=== PATIENT | female | born 1975 | race Caucasian/White ===

== ENCOUNTER 2016-03-17 14:16 | Outpatient (CLI) | payer BC | END 2016-03-17 14:17 | disposition home or self-care (01) | DX: R10.83 Colic (principal) ==

== ENCOUNTER 2016-06-25 06:13 | Day surgery (SDC) | payer BC ==
[2016-06-25] MEDS ORDERED: CELECOXIB 100 MG CAPSULE PO ONE (06:34)
[2016-06-25] MEDS ORDERED: LACTATED RINGERS 1,000 ML IV ONE ×2 (06:44→09:54)
[2016-06-25] MEDS ORDERED: ONDANSETRON 4 MG/2 ML VIAL ONE (07:04)
[2016-06-25] MEDS ORDERED: SCOPOLAMINE PATCH TOP ONE (07:10)
[2016-06-25] MEDS ORDERED: DEXAMETHASONE 4 MG/ML VIAL IVP ONE (08:00)
[2016-06-25] MEDS ORDERED: fentaNYL 100 MCG/2 ML VIAL IVP ONE (08:00)
[2016-06-25] MEDS ORDERED: KETOROLAC 30 MG/ML VIAL IVP ONE (08:00)
[2016-06-25] MEDS ORDERED: GLYCOPYRROLATE 1 MG/5 ML VIAL IVP ONE (08:00)
[2016-06-25] MEDS ORDERED: MIDAZOLAM 2 MG/2 ML VIAL IVP ONE (08:00)
[2016-06-25] MEDS ORDERED: ONDANSETRON 4 MG/2 ML VIAL IVP ONE (08:00)
[2016-06-25] MEDS ORDERED: SUCCINYLCHOLINE 200 MG/10 ML VIAL IVP ONE (08:00)
[2016-06-25] MEDS ORDERED: PROPOFOL 200 MG/20 ML VIAL IVP ONE (08:00)
[2016-06-25] MEDS ORDERED: LIDOCAINE-MPF 2% 5 ML VIAL IM ONE (08:00)
[2016-06-25] MEDS ORDERED: ROCURONIUM 50 MG/5 ML VIAL IVP ONE (08:00)
[2016-06-25] MEDS ORDERED: NEOSTIGMINE 1 MG/1 ML 10 ML MDV IVP ONE (08:00)
[2016-06-25] MEDS ORDERED: LIDOCAINE 1%-EPI 1:100000 30 ML MDV SUBQ ONE ×2 (08:40)
[2016-06-25] MEDS: HYDROmorphone 1 MG/ML SYRINGE ONE ×3 (09:25→09:49)
[2016-06-25] MEDS ORDERED: HYDROcod/ACETAM 5/325 MG TABLET ONE (10:11)
== END 2016-06-25 06:14 | disposition home or self-care (01) ==
PROC: 0UT74ZZ Resection of Bilateral Fallopian Tubes, Percutaneous Endoscopic Approach (ICD-10-PCS; 2016-06-25)
PROC: 0U514ZZ Destruction of Left Ovary, Percutaneous Endoscopic Approach (ICD-10-PCS; 2016-06-25)
PROC: 0D5W4ZZ Destruction of Peritoneum, Percutaneous Endoscopic Approach (ICD-10-PCS; 2016-06-25)
PROC: 0UT04ZZ Resection of Right Ovary, Percutaneous Endoscopic Approach (ICD-10-PCS; principal; 2016-06-25 07:30)
DX: N80.3 Endometriosis of pelvic peritoneum (principal); D25.1 Intramural leiomyoma of uterus; D25.2 Subserosal leiomyoma of uterus; N83.8 Other noninflammatory disorders of ovary, fallopian tube and broad ligament; Z30.2 Encounter for sterilization; Z88.2 Allergy status to sulfonamides; F41.9 Anxiety disorder, unspecified; G43.909 Migraine, unspecified, not intractable, without status migrainosus; K21.9 Gastro-esophageal reflux disease without esophagitis; E66.9 Obesity, unspecified; Z68.35 Body mass index [BMI] 35.0-35.9, adult; I10 Essential (primary) hypertension
CPT/HCPCS: 58661; 58662; 81025; A9270; J1170; J3490; J7120

== ENCOUNTER 2016-06-29 15:34 | Inpatient (IN) | payer BC ==
[2016-06-29] MEDS ORDERED: HYDROmorphone 1 MG/ML SYRINGE IVP STA ×2 (16:12→17:14)
[2016-06-29] MEDS ORDERED: HYDROmorphone 1 MG/ML SYRINGE ONE ×2 (16:12→17:17)
[2016-06-29] MEDS ORDERED: ONDANSETRON 4 MG/2 ML VIAL ONE ×2 (16:12→17:02)
[2016-06-29] MEDS ORDERED: ONDANSETRON 4 MG/2 ML VIAL IVP STA ×2 (16:12→16:58)
[2016-06-29] MEDS ORDERED: SODIUM CHLORIDE 0.9% 1,000 ML IV ONE ×3 (16:12→17:02)
[2016-06-29] MEDS ORDERED: IOPAMIDOL-300 100 ML VIAL IVP ONE (16:54)
[2016-06-29] MEDS ORDERED: ACETAMINOPHEN 1,000 MG/100 ML 100 ML IV STA (17:15)
[2016-06-29] MEDS ORDERED: ACETAMINOPHEN 1,000 MG/100 ML 100 ML IV ONE (17:17)
[2016-06-29] MEDS ORDERED: METOCLOPRAMIDE 10 MG/2 ML VIAL IVP STA (17:28)
[2016-06-29] MEDS ORDERED: METOCLOPRAMIDE 10 MG/2 ML VIAL IVP ONE (17:32)
[2016-06-29] MEDS ORDERED: VANCOMYCIN INJ 1 GM in SODIUM CHLORIDE 0.9% 250 ML IV STA (18:19)
[2016-06-29] MEDS ORDERED: VANCOMYCIN 1 GM VIAL ONE (18:20)
[2016-06-29] MEDS ORDERED: IBUPROFEN 600 MG TABLET PO PRN (18:47)
[2016-06-29] MEDS ORDERED: HYDROcod/ACETAM 5/325 MG TABLET PO PRN (18:47)
[2016-06-29] MEDS ORDERED: ONDANSETRON 4 MG/2 ML VIAL IVP PRN (18:47)
[2016-06-29] MEDS: HYDROmorphone 1 MG/ML SYRINGE IVP PRN ×2 (19:33→22:01)
[2016-06-29] MEDS: SODIUM CHLORIDE FLUSH 0.9% 10 ML SYRINGE IVP PRN (19:35)
[2016-06-29] MEDS ORDERED: VANCOMYCIN PER PHARMACY 1 GM in SODIUM CHLORIDE 0.9% 250 ML IV SCH (20:00)
[2016-06-29] MEDS ORDERED: ONDANSETRON 4 MG/2 ML VIAL IVP SCH (20:47)
[2016-06-29] MEDS: SODIUM CHLORIDE FLUSH 0.9% 10 ML SYRINGE IVP SCH ×2 (22:02→22:33)
[2016-06-29] MEDS: LACTATED RINGERS 1,000 ML IV SCH (22:03)
[2016-06-29] MEDS: metroNIDAZOLE 500 MG/100 ML 100 ML IV SCH (22:33)
[2016-06-29] MEDS ORDERED: LIDOCAINE JELLY 2% 5 ML TUBE TOP ONE (22:35)
[2016-06-30] MEDS: HYDROmorphone 1 MG/ML SYRINGE IVP PRN ×5 (00:16→21:30)
[2016-06-30] MEDS: ZOLPIDEM 5 MG TABLET PO PRN (00:17)
[2016-06-30] MEDS ORDERED: PROCHLORPERAZINE 10 MG/2 ML VIAL IVP PRN (01:16)
[2016-06-30] MEDS ORDERED: LIDOCAINE JELLY 2% 5 ML TUBE TOP ONE (01:51)
[2016-06-30] MEDS: metroNIDAZOLE 500 MG/100 ML 100 ML IV SCH ×4 (02:27→21:23)
[2016-06-30] MEDS: LACTATED RINGERS 1,000 ML IV SCH ×4 (02:48→21:42)
[2016-06-30] MEDS: SODIUM CHLORIDE FLUSH 0.9% 10 ML SYRINGE IVP PRN (02:51)
[2016-06-30] MEDS ORDERED: VANCOMYCIN INJ 1.25 GM in SODIUM CHLORIDE 0.9% 500 ML IV SCH (04:00)
[2016-06-30] MEDS: SODIUM CHLORIDE FLUSH 0.9% 10 ML SYRINGE IVP SCH ×3 (06:34→21:24)
[2016-06-30] MEDS: POLYETHYLENE GLYCOL 3350 17 GM PACKET PO SCH (09:55)
[2016-06-30] MEDS: oxyCODONE 5 MG TABLET PO SCH ×3 (13:41→21:23)
[2016-06-30] MEDS: ACETAMINOPHEN 500 MG TABLET PO SCH ×2 (13:41→21:24)
[2016-06-30] MEDS ORDERED: VANCOMYCIN INJ 1 GM, VANCOMYCIN INJ 500 MG in SODIUM CHLORIDE 0.9% 500 ML IV SCH (16:00)
[2016-06-30] MEDS ORDERED: VANCOMYCIN 500 MG VIAL ONE (16:42)
[2016-06-30] MEDS ORDERED: VANCOMYCIN 1 GM VIAL ONE (16:42)
[2016-06-30] MEDS ORDERED: SODIUM CHLORIDE 0.9% 500 ML IV ONE (16:42)
[2016-06-30] MEDS ORDERED: PHENOL THROAT SPRAY 177 ML MM ONE (17:57)
[2016-06-30] MEDS: CELECOXIB 100 MG CAPSULE PO SCH (21:24)
[2016-07-01] MEDS: oxyCODONE 5 MG TABLET PO SCH ×3 (00:48→08:36)
[2016-07-01] MEDS: HYDROmorphone 1 MG/ML SYRINGE IVP PRN ×3 (01:15→10:00)
[2016-07-01] MEDS: metroNIDAZOLE 500 MG/100 ML 100 ML IV SCH ×3 (01:38→13:20)
[2016-07-01] MEDS: ZOLPIDEM 5 MG TABLET PO PRN (02:03)
[2016-07-01] MEDS ORDERED: VANCOMYCIN INJ 1 GM, VANCOMYCIN INJ 500 MG in SODIUM CHLORIDE 0.9% 500 ML IV SCH (04:00)
[2016-07-01] MEDS: LACTATED RINGERS 1,000 ML IV SCH ×4 (05:23→21:39)
[2016-07-01] MEDS: ACETAMINOPHEN 500 MG TABLET PO SCH ×3 (05:52→21:39)
[2016-07-01] MEDS: SODIUM CHLORIDE FLUSH 0.9% 10 ML SYRINGE IVP SCH ×3 (06:09→22:11)
[2016-07-01] MEDS: metFORMIN 500 MG TABLET PO SCH ×4 (06:21→21:40)
[2016-07-01] MEDS: TOPIRAMATE 25 MG TABLET PO SCH ×2 (08:35→21:40)
[2016-07-01] MEDS: ESCITALOPRAM 10 MG TABLET PO SCH (08:35)
[2016-07-01] MEDS: CELECOXIB 100 MG CAPSULE PO SCH ×2 (08:36→21:40)
[2016-07-01] MEDS: POLYETHYLENE GLYCOL 3350 17 GM PACKET PO SCH (08:36)
[2016-07-01] MEDS ORDERED: HYDROmorphone 2 MG TABLET PO PRN (11:51)
[2016-07-01] MEDS: METOCLOPRAMIDE 10 MG TABLET PO SCH ×3 (12:29→23:56)
[2016-07-01] MEDS ORDERED: VANCOMYCIN INJ 2 GM in SODIUM CHLORIDE 0.9% 500 ML IV SCH (16:00)
[2016-07-01] MEDS: HYDROmorphone 2 MG TABLET PO PRN ×2 (16:57→21:41)
[2016-07-01] MEDS: SACCHAROMYCES BOULARDII 250 MG CAPSULE PO SCH (16:58)
[2016-07-01] MEDS ORDERED: GENTAMICIN 240 MG in SODIUM CHLORIDE 0.9% 100ML 100 ML IV SCH (19:00)
[2016-07-01] MEDS: CIPROFLOXACIN 400 MG/200 ML 200 ML IV SCH (19:15)
[2016-07-02] MEDS: ACETAMINOPHEN 500 MG TABLET PO SCH ×3 (04:38→22:04)
[2016-07-02] MEDS: HYDROmorphone 2 MG TABLET PO PRN ×5 (04:38→22:06)
[2016-07-02] MEDS: LACTATED RINGERS 1,000 ML IV SCH (04:40)
[2016-07-02] MEDS: SODIUM CHLORIDE FLUSH 0.9% 10 ML SYRINGE IVP SCH ×3 (05:44→19:28)
[2016-07-02] MEDS: CIPROFLOXACIN 400 MG/200 ML 200 ML IV SCH ×2 (06:56→19:27)
[2016-07-02] MEDS: METOCLOPRAMIDE 10 MG TABLET PO SCH ×4 (07:00→23:39)
[2016-07-02] MEDS: SACCHAROMYCES BOULARDII 250 MG CAPSULE PO SCH ×2 (07:50→17:53)
[2016-07-02] MEDS: metFORMIN 500 MG TABLET PO SCH ×3 (07:50→22:05)
[2016-07-02] MEDS: TOPIRAMATE 25 MG TABLET PO SCH ×2 (07:50→22:05)
[2016-07-02] MEDS: CELECOXIB 100 MG CAPSULE PO SCH ×2 (07:50→22:05)
[2016-07-02] MEDS: ESCITALOPRAM 10 MG TABLET PO SCH (07:50)
[2016-07-02] MEDS: POLYETHYLENE GLYCOL 3350 17 GM PACKET PO SCH (07:50)
[2016-07-02] MEDS: POTASSIUM CHLOR 10 MEQ/100 ML 100 ML IV SCH ×2 (12:04→13:26)
[2016-07-02] MEDS: SODIUM CHLORIDE FLUSH 0.9% 10 ML SYRINGE IVP PRN (19:28)
[2016-07-02] MEDS: ZOLPIDEM 5 MG TABLET PO PRN (23:39)
[2016-07-03] MEDS: SODIUM CHLORIDE FLUSH 0.9% 10 ML SYRINGE IVP SCH (05:59)
[2016-07-03] MEDS: ACETAMINOPHEN 500 MG TABLET PO SCH (05:59)
[2016-07-03] MEDS: metFORMIN 500 MG TABLET PO SCH (05:59)
[2016-07-03] MEDS: CIPROFLOXACIN 400 MG/200 ML 200 ML IV SCH (06:00)
[2016-07-03] MEDS: METOCLOPRAMIDE 10 MG TABLET PO SCH (06:00)
[2016-07-03] MEDS: POLYETHYLENE GLYCOL 3350 17 GM PACKET PO SCH (08:09)
[2016-07-03] MEDS: ESCITALOPRAM 10 MG TABLET PO SCH (08:09)
[2016-07-03] MEDS: CELECOXIB 100 MG CAPSULE PO SCH (08:09)
[2016-07-03] MEDS: SACCHAROMYCES BOULARDII 250 MG CAPSULE PO SCH (08:09)
[2016-07-03] MEDS: TOPIRAMATE 25 MG TABLET PO SCH (08:09)
[2016-07-03] MEDS: HYDROmorphone 2 MG TABLET PO PRN (08:14)
== END 2016-07-03 08:55 | disposition home or self-care (01) | DRG 863 ==
DX: T81.4XXA Infection following a procedure, initial encounter (principal); L03.311 Cellulitis of abdominal wall; K56.7 Ileus, unspecified; B95.61 Methicillin susceptible Staphylococcus aureus infection as the cause of diseases classified elsewhere; Y83.8 Other surgical procedures as the cause of abnormal reaction of the patient, or of later complication, without mention of misadventure at the time of the procedure; R33.9 Retention of urine, unspecified; F41.8 Other specified anxiety disorders; Z16.24 Resistance to multiple antibiotics; Z87.891 Personal history of nicotine dependence; Z90.721 Acquired absence of ovaries, unilateral; Z90.79 Acquired absence of other genital organ(s); Z87.898 Personal history of other specified conditions

== ENCOUNTER 2016-12-17 14:29 | Outpatient (CLI) | payer BC | END 2016-12-17 14:30 | disposition critical access hospital (66) | LOC: EMS 14:29 | PROVIDERS: ATTEND Surgery | DX: M54.9 Dorsalgia, unspecified (principal); R10.32 Left lower quadrant pain; M25.552 Pain in left hip; M54.2 Cervicalgia; V80.010A Animal-rider injured by fall from or being thrown from horse in noncollision accident, initial encounter; Y93.52 Activity, horseback riding; Y92.410 Unspecified street and highway as the place of occurrence of the external cause | CPT/HCPCS: A0425; A0427 ==

== ENCOUNTER 2016-12-17 14:43 | Observation (INO) | payer BC ==
[2016-12-17] MEDS ORDERED: MORPHINE 2 MG/ML SYRINGE IVP STA (14:56)
--- NOTE | 2016-12-17 14:57 | ED Physician Documentation ---
PD HPI MAJOR TRAUMA - Stated complaint Stated Complaint: FALL FROM HORSE - Chief complaint Chief Complaint: Trauma Ext - History obtained from History obtained from: Patient, Family, EMS - History of Present Illness Mechanism of injury: Fell Where injury occurred: Park Timing - onset: Today Injury(ies) location: Back, Left Lower Extremity, Other (pelvis) Quality of pain: Pain, Throbbing Associated symptoms: AMS, Amnesia. No: LOC, Seizures, Ear drainage, Nasal drainage, Neck pain, Weakness, Paresthesias, Dyspnea, Nausea / vomiting, Hematemesis, Abdominal distension Symptoms improve with: Rest Worsens with: Movement, Palpation Contributing factors: No: Anticoagulated Similar symptoms before: Has not had sx before Recently seen: Not recently seen Review of Systems Constitutional: denies: Fever Nose: denies: Congestion Throat: denies: Sore throat Cardiac: denies: Chest pain / pressure, Palpitations Respiratory: denies: Dyspnea, Cough GI: denies: Abdominal Pain, Nausea, Vomiting, Constipation, Diarrhea : denies: Dysuria, Frequency Skin: denies: Rash Musculoskeletal: reports: Back pain, Extremity pain, Joint pain. 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: Endometrial ablation, Oophrectomy, Other - Present Medications Home Medications: Ambulatory Orders Medication Instructions Recorded Confirmed Escitalopram Oxalate [Lexapro] 20 mg PO DAILY 02/05/16 06/30/16 Metformin HCl 500 mg PO TID 02/05/16 06/30/16 Norethindrone-Ethinyl Estrad 1 each PO DAILY 02/05/16 06/30/16 [Nortrel 7-7-7-28 Tablet] Riboflavin 400 mg PO DAILY 02/05/16 06/30/16 Topiramate [Topamax] 25 mg PO DAILY 02/05/16 06/30/16 Famotidine 40 mg PO BID 06/30/16 06/30/16 Sumatriptan Succinate [Imitrex] 4 mg SQ Q24H PRN 06/30/16 06/30/16 Topiramate [Topamax] 50 mg PO QPM 06/30/16 06/30/16 Escitalopram [Lexapro] 20 mg PO DAILY #30 tablet 07/03/16 HYDROmorphone [Dilaudid] 4 mg PO Q4HR PRN #50 tablet 07/03/16 Metoclopramide [Reglan] 10 mg PO Q6H #30 tablet 07/03/16 Topiramate [Topamax] 25 mg PO BID #60 tablet 07/03/16 metFORMIN [Glucophage] 500 mg PO TID #60 tablet 07/03/16 - Allergies Allergies/Adverse Reactions: Allergies Allergy/AdvReac Type Severity Reaction Status Date / Time Sulfa (Sulfonamide Allergy Rash Verified 02/05/16 13:49 Antibiotics) - Social History Does the pt smoke?: No Smoking Status: Former smoker Does the pt drink ETOH?: No Does the pt have substance abuse?: No - Immunizations Immunizations are current?: Yes PD ED PE NORMAL - Vitals Vital signs reviewed: Yes (tachy and hypertensive ) - General General: Well developed/nourished, Other (40-year-old female on a backboard with hard collar in place and a tourniquet around her pelvis. Appears to be in pain) - HEENT HEENT: Atraumatic, PERRL, EOMI - Neck Neck: Supple, no meningeal sign, No bony TTP - Cardiac Cardiac: RRR, No murmur - Respiratory Respiratory: No respiratory distress, Clear bilaterally, Other (no chest wall or back pain ) - Abdomen Abdomen: Normal bowel sounds, Other (mild right lower quadrant tenderness) - Back Back: No CVA TTP, Other (There is some mild tenderness to the mid lumbar spine with distracting pain in the left hip/pelvis) - Derm Derm: Normal color, Warm and dry, No rash - Extremities Extremities: No deformity, No edema, Other (There is pain to palpation of the mid femur and this is radiating to the pelvis. There is pain to the pelvis on the left side with all movements of the patient.There is specific pain to the suprapubic area on the left and pain referred to this area with any movement of the LE. ) - Neuro Neuro: Alert and oriented X 3, No motor deficit, No sensory deficit, Normal speech - Psych Psych: Normal mood, Normal affect Results - Vitals Vitals: Vital Signs - 24 hr 12/17/16 12/17/16 12/17/16 14:45 15:42 16:17 Temperature Heart Rate 102 H 95 99 Respiratory 20 17 18 Rate Blood Pressure 143/95 H 122/105 H 128/74 O2 Saturation 99 98 100 12/17/16 17:43 Temperature 37.2 C Heart Rate 107 H Respiratory 16 Rate Blood Pressure 128/83 H O2 Saturation 99 Oxygen O2 Source Room air - Rads (name of study) CT abdomen pelvis with Radiology: Prelim report reviewed (Impression: 1. There are fractures of the left superior and inferior pubic rami and anterior left sacrum. 2. No acute solid organ injury.3. Incidental findings described above.), EMP read indepedently, See rad report Left femur Radiology: Prelim report reviewed (Impression: Normal femur radiography.), EMP read indepedently, See rad report PD MEDICAL DECISION MAKING - ED course Complexity details: reviewed old records, reviewed results, re-evaluated patient , considered differential, d/w patient, d/w family ED course: 40-year-old female with a fall off a horse and broke her pelvis. She has a superior and inferior ramus fracture and a anterior sacral fracture. She is having extreme pain and she has been on pain management for some time now. She has some relief of pain with use of intravenous morphine she does not have adequate pain relief with use of oral Vicodin for ambulation and I have asked the Orthopedic surgeon Dr. Garces to place the patient in the hospital in observation for pain control and disposition. Departure - Departure Disposition: ED Place in Observation Clinical Impression: Closed fracture of left inferior pubic ramus Qualifiers: Encounter type: initial encounter Qualified Code(s): S32.592A - Other specified fracture of left pubis, initial encounter for closed fracture Fracture of superior ramus of left pubis Qualifiers: Encounter type: initial encounter Fracture type: closed Qualified Code(s): S32.512A - Fracture of superior rim of left pubis, initial encounter for closed fracture Sacral fracture, closed Qualifiers: Encounter type: initial encounter Zone of sacrum fracture: zone I of sacrum Fracture alignment: nondisplaced Qualified Code(s): S32.110A - Nondisplaced Zone I fracture of sacrum, initial encounter for closed fracture Condition: Stable
[2016-12-17] MEDS ORDERED: MORPHINE 10 MG/ML VIAL ONE ×2 (15:08→18:46)
[2016-12-17] MEDS ORDERED: IOPAMIDOL-300 100 ML VIAL ONE (15:11)
[2016-12-17] MEDS ORDERED: MORPHINE 10 MG/ML VIAL IVP STA ×2 (15:37→18:32)
--- NOTE | 2016-12-17 16:00 | XRAY Preliminary Report ---
Exam: XR FEMUR 2V LT IMPRESSION: Normal femur radiography. [facility] SITE ID: [id number]
--- NOTE | 2016-12-17 16:03 | XRAY Report ---
EXAM: LEFT FEMUR RADIOGRAPHY EXAM DATE: 12/17/2016 03:25 PM. CLINICAL HISTORY: Fall from horse mid thigh pain/pelvic pain. COMPARISON: None. TECHNIQUE: 2 views. FINDINGS: Bones: Normal. No fracture or bone lesion. Joints: The visualized hip and knee joints are normal. No effusions. Soft Tissues: Normal. No soft tissue swelling. IMPRESSION: Normal femur radiography. [facility] Referring Provider Line: [phone] SITE ID: [id number]
--- NOTE | 2016-12-17 16:06 | XRAY Preliminary Report ---
Exam: XR HIP W/PELVIS 1V LT IMPRESSION: 1. Acute left superior and inferior pubic rami fractures, appear mildly displaced. See the separate C T abdomen and pelvis report. [facility] SITE ID: [id number]
--- NOTE | 2016-12-17 16:09 | XRAY Report ---
EXAM: LEFT HIP AND PELVIS RADIOGRAPHY EXAM DATE: 12/17/2016 03:25 PM. HISTORY: Fall from horse left hip/pelvis pain. COMPARISONS: None. TECHNIQUE: 1 view of the pelvis and 1 view of the hip. FINDINGS: Bones: Acute left superior and inferior pubic rami fractures, appear mildly displaced. Overlying meta l zipper limits visualization. Joints: No dislocation Soft Tissues: Normal. No soft tissue swelling. Metal zipper obscures visualization. IMPRESSION: 1. Acute left superior and inferior pubic rami fractures, appear mildly displaced. See the separate C T abdomen and pelvis report. [facility] Referring Provider Line: [phone] SITE ID: [id number]
--- NOTE | 2016-12-17 16:15 | CT Preliminary Report ---
Exam: CT ABDOMEN/PELVIS W/ IMPRESSION: 1. There are fractures of the left superior and inferior pubic rami and the anterior left sacrum. 2. No acute solid organ injury. 3. Incidental findings described above. [facility] SITE ID: [id number]
--- NOTE | 2016-12-17 16:17 | CT Report ---
EXAM: CT ABDOMEN AND PELVIS EXAM DATE: 12/17/2016 03:46 PM. CLINICAL HISTORY: Fall from horse pain in pelvis and RLQ. COMPARISONS: 02/05/2016. TECHNIQUE: Routine helical CT imaging was performed through the abdomen and pelvis. IV contrast: 100 mL Isovue-300. Enteric contrast: No. Reconstructions: Coronal and sagittal. In accordance with CT protocol optimization, one or more of the following dose reduction techniques w ere utilized for this exam: automated exposure control, adjustment of mA and/or KV based on patient s ize, or use of iterative reconstructive technique. FINDINGS: Lung Bases: Unremarkable. Liver: Diffusely decreased attenuation consistent with steatosis and focal fatty sparing adjacent to the gallbladder. No significant focal abnormality. Gallbladder/Bile Ducts: The gallbladder appears normal. The extrahepatic bile duct is prominent measu ring 8 mm in diameter. Spleen: Normal. Pancreas: Normal. Adrenal Glands: Normal. Kidneys: Normal. No masses or hydronephrosis. Peritoneal Cavity/Bowel: Normal. No free fluid, free air or adenopathy. No masses or acute inflammato ry process. The appendix is well visualized and normal. Pelvic Organs: There is an approximately 3.8 cm uterine mass consistent with a fibroid. Urinary bladd er appears within normal limits. Vasculature: No aneurysms or other significant abnormality. Bones: 1. There is a minimally displaced and mildly comminuted left superior pubic ramus fracture centered o n series 11 image 92. 2. There is a minimally displaced left inferior pubic ramus centered around image 101. 3. Mildly comminuted anterior left sacral fracture centered on image 42. Other: No large soft tissue hematoma. IMPRESSION: 1. There are fractures of the left superior and inferior pubic rami and the anterior left sacrum. 2. No acute solid organ injury. 3. Incidental findings described above. [facility] Referring Provider Line: [phone] SITE ID: [id number]
[2016-12-17] MEDS ORDERED: HYDROcod/ACETAM 7.5 MG/325 MG TABLET PO STA (16:32)
[2016-12-17] MEDS ORDERED: IOPAMIDOL-300 100 ML VIAL IVP ONE (16:32)
[2016-12-17] MEDS ORDERED: HYDROcod/ACETAM 5/325 MG TABLET ONE (16:43)
[2016-12-17] MEDS ORDERED: HYDROcod/ACETAM 7.5 MG/325 MG TABLET PO ONE (16:51)
[2016-12-17] MEDS ORDERED: KETOROLAC 60 MG/2 ML VIAL IVP STA (17:54)
[2016-12-17] MEDS ORDERED: ACETAMINOPHEN 1,000 MG/100 ML 100 ML IV STA (17:54)
[2016-12-17] MEDS ORDERED: ACETAMINOPHEN 1,000 MG/100 ML 100 ML IV ONE (18:03)
[2016-12-17] MEDS ORDERED: KETOROLAC 60 MG/2 ML VIAL ONE (18:03)
--- NOTE | 2016-12-17 18:03 | HISTORY & PHYSICAL EXAMINATION ---
Chief Complaint - Chief Complaint Chief Complaint: Fell off horse with injury to pelvis. 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: Endometrial ablation, Oophrectomy, Other Meds/Allgy - Home Medications Home Medications: Ambulatory Orders Medication Instructions Recorded Confirmed Escitalopram Oxalate [Lexapro] 20 mg PO DAILY 02/05/16 06/30/16 Metformin HCl 500 mg PO TID 02/05/16 06/30/16 Norethindrone-Ethinyl Estrad 1 each PO DAILY 02/05/16 06/30/16 [Nortrel 7-7-7-28 Tablet] Riboflavin 400 mg PO DAILY 02/05/16 06/30/16 Topiramate [Topamax] 25 mg PO DAILY 02/05/16 06/30/16 Famotidine 40 mg PO BID 06/30/16 06/30/16 Sumatriptan Succinate [Imitrex] 4 mg SQ Q24H PRN 06/30/16 06/30/16 Topiramate [Topamax] 50 mg PO QPM 06/30/16 06/30/16 Escitalopram [Lexapro] 20 mg PO DAILY #30 tablet 07/03/16 HYDROmorphone [Dilaudid] 4 mg PO Q4HR PRN #50 tablet 07/03/16 Metoclopramide [Reglan] 10 mg PO Q6H #30 tablet 07/03/16 Topiramate [Topamax] 25 mg PO BID #60 tablet 07/03/16 metFORMIN [Glucophage] 500 mg PO TID #60 tablet 07/03/16 - Allergies Allergies/Adverse Reactions: Allergies Allergy/AdvReac Type Severity Reaction Status Date / Time Sulfa (Sulfonamide Allergy Rash Verified 02/05/16 13:49 Antibiotics) Exam - Vital Signs Vital Signs: Vital Signs x48h Temp Pulse Resp BP Pulse Ox 12/17/16 17:43 37.2 C 107 H 16 128/83 H 99 12/17/16 16:17 99 18 128/74 100 12/17/16 15:42 95 17 122/105 H 98 12/17/16 14:45 102 H 20 143/95 H 99
--- NOTE | 2016-12-17 18:24 | HISTORY & PHYSICAL EXAMINATION ---
Chief Complaint - Chief Complaint Chief Complaint: 40 yo female fell off horse History of Present Illness - Admitted From Admitted From:: ED - History Obtained From Records Reviewed: none History obtained from: patient Exam Limitations: Patient unable to move from supine position - History of Present Illness HPI Comment/Other: fell off horse earlier ths afternoon. She was transported to ER with only complaint of pelvic area pain. She has prior Hx of meth and pill addiction. Clean for 2 years and attending Hs PCP active in her narcotic control. Denies numbness or weakness. History - Past Medical History Cardiovascular: reports: None Respiratory: reports: None Neuro: reports: None, Cerebral palsy Endocrine/Autoimmune: reports: None GI: reports: GERD, Hiatal hernia, Chronic constipation KNIFE CHANGER: reports: Endometriosis : reports: Other HEENT: reports: Chronic hearing loss Psych: reports: Depression, Anxiety Musculoskeletal: reports: None, Chronic back pain MRSA Hx?: No - Past Surgical History Ortho: reports: Carpal Tunnel surgery /KNIFE CHANGER: reports: Endometrial ablation, Oophrectomy, Other - Family & Social History Living arrangement: At home Living Situation: With family - Substance History Use: Uses substance without health or social issues: Amphetamine, Opioid Abuse: Recurrent use of substance despite neg consequences: Amphetamine, Opioid Dependence: Experiences withdrawal or developed tolerances: Opioid - POLST POLST Status: Full Code Meds/Allgy - Home Medications Home Medications: Ambulatory Orders Medication Instructions Recorded Confirmed Escitalopram Oxalate [Lexapro] 20 mg PO DAILY 02/05/16 06/30/16 Metformin HCl 500 mg PO TID 02/05/16 06/30/16 Norethindrone-Ethinyl Estrad 1 each PO DAILY 02/05/16 06/30/16 [Nortrel 7-7-7-28 Tablet] Riboflavin 400 mg PO DAILY 02/05/16 06/30/16 Topiramate [Topamax] 25 mg PO DAILY 02/05/16 06/30/16 Famotidine 40 mg PO BID 06/30/16 06/30/16 Sumatriptan Succinate [Imitrex] 4 mg SQ Q24H PRN 06/30/16 06/30/16 Topiramate [Topamax] 50 mg PO QPM 06/30/16 06/30/16 Escitalopram [Lexapro] 20 mg PO DAILY #30 tablet 04/27/17 HYDROmorphone [Dilaudid] 4 mg PO Q4HR PRN #50 tablet 07/03/16 Metoclopramide [Reglan] 10 mg PO Q6H #30 tablet 07/03/16 Topiramate [Topamax] 25 mg PO BID #60 tablet 07/03/16 metFORMIN [Glucophage] 500 mg PO TID #60 tablet 07/03/16 - Allergies Allergies/Adverse Reactions: Allergies Allergy/AdvReac Type Severity Reaction Status Date / Time Sulfa (Sulfonamide Allergy Rash Verified 02/05/16 13:49 Antibiotics) Exam - Vital Signs Vital Signs: Vital Signs x48h Temp Pulse Resp BP Pulse Ox 12/17/16 17:43 37.2 C 107 H 16 128/83 H 99 12/17/16 16:17 99 18 128/74 100 12/17/16 15:42 95 17 122/105 H 98 12/17/16 14:45 102 H 20 143/95 H 99
[2016-12-17] MEDS ORDERED: SODIUM CHLORIDE FLUSH 0.9% 10 ML SYRINGE IVP ONE (18:46)
--- NOTE | 2016-12-17 18:47 | HISTORY & PHYSICAL EXAMINATION ---
Chief Complaint - Chief Complaint Chief Complaint: 40 yo female fell off horse History of Present Illness - Admitted From Admitted From:: ER - History Obtained From Records Reviewed: none History obtained from: patient Exam Limitations: patient cannot move well - History of Present Illness HPI Comment/Other: No other injury. 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: reports: Endometrial ablation, Oophrectomy, Other - Family & Social History Living arrangement: At home Living Situation: With family - Substance History Use: Uses substance without health or social issues: Amphetamine, Opioid Abuse: Recurrent use of substance despite neg consequences: Amphetamine, Opioid Dependence: Experiences withdrawal or developed tolerances: Opioid - POLST POLST Status: Full Code Meds/Allgy - Home Medications Home Medications: Ambulatory Orders Medication Instructions Recorded Confirmed Escitalopram Oxalate [Lexapro] 20 mg PO DAILY 02/05/16 06/30/16 Metformin HCl 500 mg PO TID 02/05/16 06/30/16 Norethindrone-Ethinyl Estrad 1 each PO DAILY 02/05/16 06/30/16 [Nortrel 7-7-7-28 Tablet] Riboflavin 400 mg PO DAILY 02/05/16 06/30/16 Topiramate [Topamax] 25 mg PO DAILY 02/05/16 06/30/16 Famotidine 40 mg PO BID 06/30/16 06/30/16 Sumatriptan Succinate [Imitrex] 4 mg SQ Q24H PRN 06/30/16 06/30/16 Topiramate [Topamax] 50 mg PO QPM 06/30/16 06/30/16 Escitalopram [Lexapro] 20 mg PO DAILY #30 tablet 07/03/16 HYDROmorphone [Dilaudid] 4 mg PO Q4HR PRN #50 tablet 07/03/16 Metoclopramide [Reglan] 10 mg PO Q6H #30 tablet 07/03/16 Topiramate [Topamax] 25 mg PO BID #60 tablet 07/03/16 metFORMIN [Glucophage] 500 mg PO TID #60 tablet 07/03/16 - Allergies Allergies/Adverse Reactions: Allergies Allergy/AdvReac Type Severity Reaction Status Date / Time Sulfa (Sulfonamide Allergy Rash Verified 02/05/16 13:49 Antibiotics) Review of Systems - Constitutional Constitutional: reports: Malaise - Genitourinary Genitourinary: reports: Flank pain (endometriosis) Exam - Vital Signs Vital Signs: Vital Signs x48h Temp Pulse Resp BP Pulse Ox 12/17/16 17:43 37.2 C 107 H 16 128/83 H 99 12/17/16 16:17 99 18 128/74 100 12/17/16 15:42 95 17 122/105 H 98 12/17/16 14:45 102 H 20 143/95 H 99 - Physical Exam General Appearance: positive: Alert, Moderate distress Eyes Bilateral: positive: Normal inspection ENT: positive: ENT inspection nml Neck: positive: Nml inspection Respiratory: positive: Chest non-tender, Breath sounds nml Cardiovascular: positive: Regular rate & rhythm Peripheral Pulses: positive: 2+ Abdomen: positive: Non-tender, Abnml bowel sounds Skin: positive: Color nml Extremities: positive: Non-tender Neurologic/Psychiatric: positive: Oriented x3 Conclusion/Plan - Problem List (1) Multiple closed pelvic fractures with disruption of pelvic ring Qualifiers: Encounter type: initial encounter Qualified Code(s): S32.810A - Multiple fractures of pelvis with stable disruption of pelvic ring, initial encounter for closed fracture - Lab Results Lab results reviewed: No - Diagnostic Imaging Results Diagnostic Imaging Results: positive: Prelim report reviewed Diagnostic Imaging Results Comments: CT Scan of pelvis without contrast show fractures of the superior anad inferior pubic rami. In addition there is a small corner fracture at the inferior and lateral margin of the left S1 ala. There may be mild spreading of the SIjoint on the left. - EKG Results EKG Interpreted Independently: No - Other Other Results/Comments: Patient requires admission for pain control and forobservation of bowel activity. Ileus possible with such a forceful injury. Discussed thoroughly with patient and assembled family members with permission of patient. Issues/Core Measures - Anticipated LOS Anticipated Stay Length: Less than 2 midnights - DVT/VTE - Prophylaxis VTE/DVT Device ordered at admit?: Yes VTE/DVT Prophylaxis med ordered at admit?: No Not Ordered - Medical Reason: Not indicated - Stroke - Rehab Assessment Rehab services assessment to be ordered?: No - AMI - Statin at Admit Aspirin Prescribed on Admit: Yes
[2016-12-17] MEDS ORDERED: ZOLPIDEM 5 MG TABLET PO PRN (19:13)
[2016-12-17] MEDS ORDERED: KETOROLAC 30 MG/ML VIAL IVP SCH (20:30)
[2016-12-17] MEDS: HYDROcod/ACETAM 10 MG/325 MG TABLET PO PRN (20:35)
[2016-12-17] MEDS: LACTATED RINGERS 1,000 ML IV SCH (20:35)
[2016-12-17] MEDS: SODIUM CHLORIDE FLUSH 0.9% 10 ML SYRINGE IVP SCH (20:35)
[2016-12-17] MEDS: SODIUM CHLORIDE FLUSH 0.9% 10 ML SYRINGE IVP PRN (22:13)
[2016-12-17] MEDS: MORPHINE 2 MG/ML SYRINGE IVP PRN (22:13)
[2016-12-18] MEDS: MORPHINE 2 MG/ML SYRINGE IVP PRN ×4 (00:16→16:22)
[2016-12-18] MEDS: KETOROLAC 30 MG/ML VIAL IVP SCH ×3 (00:17→11:08)
[2016-12-18] MEDS: SODIUM CHLORIDE FLUSH 0.9% 10 ML SYRINGE IVP SCH ×2 (05:17→13:01)
[2016-12-18] MEDS: HYDROcod/ACETAM 10 MG/325 MG TABLET PO PRN ×3 (05:45→14:43)
[2016-12-18] MEDS ORDERED: PANTOPRAZOLE 40 MG TABLET PO SCH (07:00)
--- NOTE | 2016-12-18 08:26 | PROVIDER PROGRESS NOTE ---
Subjective - Prog Note Date Prog Note Date: 12/18/16 Prog Note Time: 08:25 - Subjective Pt reports feeling: Improved Subjective: Pt slept with Ambien. Positive flatus. Feels 5/10 pain before next dose. Current Medications - Current Medications Current Medications: [place] 10/325 2 tabs q4hr prn for pain 8 to 10 Ketoralac 30 IVP Q6hr Lactated Ringers 1000 mL@ 50 Metformin hcl 500 mg PO TID Morphine Sulfate 4 mg IVP q1hr PRN Nortethindrone-Ethinyl 7-7-728 Tablet (Patients own med) Protonix 40 mg PO QDAC NS Flush 10 ml IVP PRN Ambien 5mg PO QPM PRN Objective - Vital Signs/Intake & Output Reviewed Vital Signs: Yes Vital Signs: Vital Signs x48h Temp Pulse Pulse Resp BP Pulse Ox 12/18/16 07:46 36.5 C 59 L 18 90/50 L 95 12/18/16 05:59 36.5 C 85 18 106/63 96 Intake & Output: Intake & Output 12/15/16 12/16/16 12/17/16 12/18/16 23:59 23:59 23:59 23:59 Intake Total 143.333 Output Total 300 Balance -156.667 - Objective General Appearance: positive: No acute distress, Alert Eyes Bilateral: positive: Normal inspection ENT: positive: ENT inspection nml Neck: positive: Nml inspection Respiratory: positive: Chest non-tender Cardiovascular: positive: Regular rate & rhythm, Bradycardia Abdomen: positive: Non-tender Extremities: positive: Non-tender Neurologic/Psychiatric: positive: Oriented x3, Sensation nml. negative: Depressed mood/affect - Diagnostic Imaging Diagnostic Imaging Results: positive: Prelim report reviewed (agree with Radiologist) Assessment/Plan - Problem List (1) Multiple closed pelvic fractures with disruption of pelvic ring Impression: Patient definitely improved with same diagnosis. She wants to go home today if possible. We will have PT see her to attempt to mobilize BP low, Will check CBC Qualifiers: Encounter type: initial encounter Qualified Code(s): S32.810A - Multiple fractures of pelvis with stable disruption of pelvic ring, initial encounter for closed fracture
[2016-12-18] MEDS: SODIUM CHLORIDE FLUSH 0.9% 10 ML SYRINGE IVP PRN ×3 (08:39→16:22)
[2016-12-18] MEDS ORDERED: POLYETHYLENE GLYCOL 3350 17 GM PACKET PO SCH (09:00)
[2016-12-18] MEDS ORDERED: NORETHINDRONE ETHINYL ESTRAD PO SCH (09:00)
[2016-12-18 09:22] LABS: BASOPHILS % (AUTO) 0.8 %; EOSINOPHILS # (AUTO) 0.3 10^3/uL (0.0-0.7); EOSINOPHILS % (AUTO) 6.4 %; HCT - HEMATOCRIT 36.4 % (37.0-47.0); HGB - HEMOGLOBIN 12.9 g/dL (12.0-16.0); LYMPHOCYTES # (AUTO) 1.1 10^3/uL (1.5-3.5); LYMPHOCYTES % (AUTO) 23.7 %; MEAN CORPUSCULAR HEMOGLOBIN 32.9 pg (27.0-31.0); MEAN CORPUSCULAR HGB CONC 35.5 g/dL (32.0-36.0); MEAN CORPUSCULAR VOLUME 92.7 fL (81.0-99.0); MEAN PLATELET VOLUME 7.2 fL (7.9-10.8); MONOCYTES # (AUTO) 0.3 10^3/uL (0.0-1.0); MONOCYTES % (AUTO) 5.8 %; NEUTROPHILS % (AUTO) 63.3 %; NUCLEATED RED BLOOD CELLS AUTO 0.1 /100WBC; RED BLOOD COUNT 3.93 10^6/uL (4.20-5.40); RED CELL DISTRIBUTION WIDTH 12.8 % (12.0-15.0); UNCORRECTED WHITE BLOOD COUNT 4.7 x10^3/uL; WHITE BLOOD COUNT 4.7 x10^3/uL (4.8-10.8)
[2016-12-18] MEDS ORDERED: metFORMIN 500 MG TABLET PO SCH ×2 (14:00)
[2016-12-18] MEDS ORDERED: POLYETHYLENE GLYCOL 3350 17 GM PACKET PO PRN ×2 (15:30)
[2016-12-18] MEDS ORDERED: DOCUSATE SODIUM 250 MG CAPSULE PO SCH (16:00)
[2016-12-18 16:19] VITALS: BP 113/69
[2016-12-18] MEDS: LACTATED RINGERS 1,000 ML IV SCH (16:22)
--- NOTE | 2016-12-18 17:09 | Discharge Plan ---
Discharge Plan Disposition: Home, Self Care Condition: Stable Prescriptions: Oxycodone HCl/Acetaminophen [Oxycodone-Acetaminophen 5-325] 1 each PO Q6HR PRN # 30 tablet PRN Reason: Pain Docusate Sodium 250Mg Capsule [Colace 250Mg Capsule] 250 mg PO DAILY #20 capsule oxyCODONE ER [OxyCONTIN] 10 mg PO Q12H #16 tablet Walker [Ultra-Light Rollator] 1 each MC ONCE #1 each Diet: Regular Activity Restrictions: Activity as Tolerated Shower Restrictions: No (take sitting) Driving Restrictions: No Assistance Devices: Walker Weight Bearing: Partial Weight Additional Instructions or Follow Up instructions: lFollow-up with Dr Hurt at [facility] (across form [facility]) in 4 weeks -- call for appt [phone] ask for Orthopedics No Smoking: If you smoke, Please STOP! Call for help. Follow-up with: Manuela Shanks PA-C [Primary Care Provider] -
== END 2016-12-18 17:45 | disposition home or self-care (01) ==
LOC: EDUNIT# → ED 14:43 → OBS 19:13
PROVIDERS: ADMIT Orthopaedic Surgery; ATTEND Orthopaedic Surgery
DX: S32.810A Multiple fractures of pelvis with stable disruption of pelvic ring, initial encounter for closed fracture (principal); V80.010A Animal-rider injured by fall from or being thrown from horse in noncollision accident, initial encounter; Y93.52 Activity, horseback riding; Y92.830 Public park as the place of occurrence of the external cause; Y99.8 Other external cause status; K21.9 Gastro-esophageal reflux disease without esophagitis; K44.9 Diaphragmatic hernia without obstruction or gangrene; K59.09 Other constipation; H91.90 Unspecified hearing loss, unspecified ear; F32.9 Major depressive disorder, single episode, unspecified; F41.9 Anxiety disorder, unspecified; G89.29 Other chronic pain; M54.9 Dorsalgia, unspecified; N80.9 Endometriosis, unspecified; Z79.891 Long term (current) use of opiate analgesic; Z79.84 Long term (current) use of oral hypoglycemic drugs; Z79.899 Other long term (current) drug therapy; Z87.891 Personal history of nicotine dependence
CPT/HCPCS: 36415; 73501; 73552; 74177; 85025; 96361; 96374; 96375; 96376; 97162; 99217; 99218; 99284; A9270; J0131; J2270; J7120; Q9967; 99283

== ENCOUNTER 2017-03-08 19:13 | Emergency (ER) | payer BC ==
--- NOTE | 2017-03-08 19:51 | ED Physician Documentation ---
PD HPI ABD PAIN - Stated complaint Stated Complaint: FEMALE - Chief complaint Chief Complaint: Abd Pain - History obtained from History obtained from: Patient - History of Present Illness Timing - onset: Other (She is postop day 9 from a laparoscopic vaginal assisted total hysterectomy with oophorectomy and appendectomy for endometriosis done at [facility]. Over the last couple of days she has had suprapubic pressure with a sensation of urinary frequency and hesitancy and today started having some air from her vagina. There is no fever or vomiting or nausea.) Review of Systems Ten Systems: 10 systems reviewed and negative Constitutional: denies: Fever, Chills Cardiac: denies: Chest pain / pressure, Palpitations Respiratory: denies: Dyspnea, Cough GI: reports: Diarrhea. denies: Abdominal Pain, Nausea, Vomiting, Constipation PD PAST MEDICAL HISTORY - Past Medical History Cardiovascular: None Respiratory: None Neuro: None Endocrine/Autoimmune: None GI: GERD, Hiatal hernia, Chronic constipation [employer]: Endometriosis : Other HEENT: Chronic hearing loss Psych: Depression, Anxiety Musculoskeletal: None, Chronic back pain - Past Surgical History Past Surgical History: Yes Ortho: Carpal Tunnel surgery /[employer]: Endometrial ablation, Oophrectomy, Other - Present Medications Home Medications: Ambulatory Orders Medication Instructions Recorded Confirmed Famotidine 40 mg PO BID 06/30/16 03/08/17 Topiramate [Topamax] 50 mg PO BID 06/30/16 03/08/17 Escitalopram [Lexapro] 20 mg PO DAILY #30 tablet 07/03/16 03/08/17 Aripiprazole [Abilify] 2 mg PO DAILY 12/18/16 03/08/17 Tolterodine [Detrol LA] 2 mg PO BID #20 capsule 03/08/17 metFORMIN [Glucophage] 500 mg PO BID 03/08/17 03/08/17 - Allergies Allergies/Adverse Reactions: Allergies Allergy/AdvReac Type Severity Reaction Status Date / Time shellfish derived Allergy Itching Verified 03/08/17 19:27 Sulfa (Sulfonamide Allergy Rash Verified 03/08/17 19:27 Antibiotics) - Social History Does the pt smoke?: No Smoking Status: Former smoker Does the pt drink ETOH?: No Does the pt have substance abuse?: No - Family History Family history: reports: Non contributory - Immunizations Immunizations are current?: Yes - POLST POLST Status: Full Code PD ED PE NORMAL - Vitals Vital signs reviewed: Yes - General General: Alert and oriented X 3, No acute distress, Well developed/nourished - HEENT HEENT: PERRL, EOMI - Neck Neck: Supple, no meningeal sign, No bony TTP - Cardiac Cardiac: RRR, No murmur - Respiratory Respiratory: No respiratory distress, Clear bilaterally - Abdomen Abdomen: Soft, Non tender, Other (incisions c/d/i) - Female Female : Statue Maker present (Alecia BLANTON), Other (No obvious defect in the vag cuff, mild dischg, no blood.) - Derm Derm: Normal color, Warm and dry - Extremities Extremities: No edema, No calf tenderness / cord - Neuro Neuro: Alert and oriented X 3, Normal speech - Psych Psych: Normal mood, Normal affect Results - Vitals Vitals: Vital Signs - 24 hr 03/08/17 19:21 Temperature 36.9 C Heart Rate 95 Respiratory 18 Rate Blood Pressure 138/96 H O2 Saturation 98 Oxygen O2 Source Room air - Labs Labs: Laboratory Tests 03/08/17 03/08/17 03/08/17 19:54 20:26 20:26 WBC 7.1 RBC 4.37 Hgb 14.3 Hct 40.6 MCV 92.9 MCH 32.7 H MCHC 35.2 RDW 14.0 Plt Count 326 MPV 6.4 L Neut # 4.9 Lymph # 1.6 [place] # 0.3 Eos # 0.2 Baso # 0.1 Absolute Nucleated RBC 0.00 Nucleated RBC % 0.0 Sodium 139 Potassium 3.7 Chloride 111 Carbon Dioxide 19 L Anion Gap 9.0 BUN 11 Creatinine 0.8 Estimated GFR (MDRD) 79 L Glucose 98 Calcium 9.6 Total Bilirubin 0.5 AST 23 ALT 18 Alkaline Phosphatase 95 Total Protein 7.5 Albumin 4.4 Globulin 3.1 Albumin/Globulin Ratio 1.4 Lipase 52 H Urine Color YELLOW Urine Clarity CLEAR Urine pH 6.0 Ur Specific [place] 1.010 Urine Protein NEGATIVE Urine Glucose (UA) NEGATIVE Urine Ketones NEGATIVE Urine Occult Blood NEGATIVE Urine Nitrite NEGATIVE Urine Bilirubin NEGATIVE Urine Urobilinogen 0.2 (NORMAL) Ur Leukocyte Esterase NEGATIVE Ur Microscopic Review NOT INDICATED Urine Culture Comments NOT INDICATED PD MEDICAL DECISION MAKING - ED course ED course: 41-year-old woman with suprapubic pressure 9 days out from hysterectomy with potential complaints of air from the vagina. No vaginal cuff dehiscence is noted on exam and no blood. She has a benign belly and normal labs, normal urinalysis, and bladder scan showing only about 50 mL in the bladder. Case was discussed by phone with the on-call automatic cigar wrapper tender at [facility], Dr. Pennington who recommended conservative care and follow-up in the clinic, no imaging necessary at this juncture. Departure - Departure Disposition: Home, Self Care Clinical Impression: Urinary frequency Condition: Good Record reviewed to determine appropriate education?: Yes Instructions: Overactive Bladder Syndrome Prescriptions: Tolterodine [Detrol LA] 2 mg PO BID #20 capsule Comments: Return if worse or if new symptoms develop. Call your surgeon on Thursday for expedited follow-up before your plan follow-up given her symptoms.
[2017-03-08 20:02] LABS: BILIRUBIN,URINE NEGATIVE (NEGATIVE); GLUCOSE, URINE (UA) NEGATIVE (NEGATIVE); KETONES,URINE (UA) NEGATIVE (NEGATIVE); LEUKOCYTE ESTERASE, URINE NEGATIVE (NEGATIVE); NITRITE,URINE NEGATIVE (NEGATIVE); OCCULT BLOOD,URINE NEGATIVE (NEGATIVE); PROTEIN,URINE NEGATIVE (NEGATIVE); UROBILINOGEN,URINE 0.2 (NORMAL) E.U./dL (NORMAL)
[2017-03-08 20:04] LABS: CLARITY,URINE CLEAR (CLEAR)
[2017-03-08 20:39] LABS: BASOPHILS # (AUTO) 0.1 10^3/uL (0.0-0.1); BASOPHILS % (AUTO) 1.2 %; EOSINOPHILS # (AUTO) 0.2 10^3/uL (0.0-0.7); EOSINOPHILS % (AUTO) 3.5 %; HGB - HEMOGLOBIN 14.3 g/dL (12.0-16.0); LYMPHOCYTES # (AUTO) 1.6 10^3/uL (1.5-3.5); LYMPHOCYTES % (AUTO) 22.2 %; MEAN CORPUSCULAR HEMOGLOBIN 32.7 pg (27.0-31.0); MEAN CORPUSCULAR HGB CONC 35.2 g/dL (32.0-36.0); MEAN CORPUSCULAR VOLUME 92.9 fL (81.0-99.0); MEAN PLATELET VOLUME 6.4 fL (7.9-10.8); MONOCYTES # (AUTO) 0.3 10^3/uL (0.0-1.0); MONOCYTES % (AUTO) 4.5 %; NEUTROPHILS # (AUTO) 4.9 10^3/uL (1.5-6.6); NEUTROPHILS % (AUTO) 68.6 %; PLT - PLATELET COUNT 326 10^3/uL (130-450); RED BLOOD COUNT 4.37 10^6/uL (4.20-5.40); WHITE BLOOD COUNT 7.1 x10^3/uL (4.8-10.8)
[2017-03-08 20:48] LABS: ALBUMIN 4.4 g/dL (3.2-5.5); ALBUMIN/GLOBULIN RATIO 1.4 (1.0-2.2); BILIRUBIN,TOTAL 0.5 mg/dL (0.2-1.0); CALCIUM 9.6 mg/dL (8.5-10.3); CREATININE 0.8 mg/dL (0.4-1.0); TOTAL PROTEIN 7.5 g/dL (6.7-8.2)
[2017-03-08] MEDS ORDERED: TOLTERODINE LA 2 MG CAPSULE PO STA (21:37)
[2017-03-08 21:55] VITALS: BP 137/93
== END 2017-03-08 22:05 | disposition home or self-care (01) ==
LOC: ED 19:13
DX: R35.0 Frequency of micturition (principal); Z90.710 Acquired absence of both cervix and uterus; Z90.721 Acquired absence of ovaries, unilateral; Z87.891 Personal history of nicotine dependence
CPT/HCPCS: 36415; 51798; 80053; 81003; 83690; 85025; 99283; A9270; 81001; 87086

== ENCOUNTER 2017-09-15 13:14 | Outpatient (CLI) | payer OTHER ==
[2017-09-15 18:10] LABS: THYROID STIMULATING HORMONE 1.35 uIU/mL (0.34-5.60)
[2017-09-15 18:12] LABS: FREE T4 (FREE THYROXINE) 0.74 ng/dL (0.58-1.64)
== END 2017-09-15 13:15 | disposition home or self-care (01) ==
LOC: LAB.F 13:14
PROVIDERS: ATTEND Physician Assistant Medical
DX: R63.5 Abnormal weight gain (principal); R53.83 Other fatigue
CPT/HCPCS: 36415; 84439; 84443; 84481

== ENCOUNTER 2018-02-01 11:27 | Outpatient (CLI) | payer OTHER ==
--- NOTE | 2018-02-02 08:38 | Mammography Report ---
Reason: ANNUAL SCREENING Procedure Date: 02/01/2018 Accession Number: [id number] / [id number] Procedure: PREET - Screening Mammo w/Denys CPT Code: FULL RESULT: EXAM: Screening Mammo w/Denys DATE: 02/01/2018 11:52 AM CLINICAL HISTORY: 42-year-old female with history of early menses presents for screening. TECHNIQUE: Bilateral CC and MLO views were obtained. COMPARISON: 03/22/2015. FINDINGS: The breasts demonstrate scattered fibroglandular densities bilaterally. No suspicious masses, clustered microcalcifications, or regions of architectural distortion are identified. IMPRESSION: Negative examination RECOMMENDATION: Routine annual screening unless otherwise clinically indicated. BIRADS CATEGORY 1: Negative STANDARD QUALIFYING STATEMENTS: 1. This examination was not reviewed with the aid of Computer-Aided Detection (CAD). 2. A negative or benign imaging report should not delay biopsy if clinically suspicious findings are present. Consider surgical consultation if warranted. More than 5% of cancers are not identified by imaging. 3. Dense breasts may obscure an underlying neoplasm. 4. This examination was reviewed with the aid of 3D breast imaging (tomosynthesis).
== END 2018-02-01 11:28 | disposition home or self-care (01) ==
LOC: DI 11:27
DX: Z12.31 Encounter for screening mammogram for malignant neoplasm of breast (principal)
CPT/HCPCS: 77063; 77067

== ENCOUNTER 2018-03-31 08:26 | Outpatient (CLI) | payer OTHER ==
[2018-03-31 10:58] LABS: EOSINOPHILS # (AUTO) 0.2 10^3/uL (0.0-0.7); EOSINOPHILS % (AUTO) 3.7 %; HGB - HEMOGLOBIN 15.9 g/dL (12.0-16.0); LYMPHOCYTES # (AUTO) 1.2 10^3/uL (1.5-3.5); LYMPHOCYTES % (AUTO) 24.7 %; MEAN CORPUSCULAR HEMOGLOBIN 33.3 pg (27.0-31.0); MEAN CORPUSCULAR HGB CONC 35.9 g/dL (32.0-36.0); MEAN CORPUSCULAR VOLUME 92.8 fL (81.0-99.0); MEAN PLATELET VOLUME 7.3 fL (7.9-10.8); MONOCYTES # (AUTO) 0.2 10^3/uL (0.0-1.0); MONOCYTES % (AUTO) 3.9 %; NEUTROPHILS # (AUTO) 3.1 10^3/uL (1.5-6.6); NEUTROPHILS % (AUTO) 66.7 %; PLT - PLATELET COUNT 188 10^3/uL (130-450); RED BLOOD COUNT 4.78 10^6/uL (4.20-5.40); WHITE BLOOD COUNT 4.7 x10^3/uL (4.8-10.8)
[2018-03-31 11:12] LABS: ALBUMIN 4.7 g/dL (3.2-5.5); ALBUMIN/GLOBULIN RATIO 1.6 (1.0-2.2); BILIRUBIN,TOTAL 1.3 mg/dL (0.2-1.0); CALCIUM 9.6 mg/dL (8.5-10.3); CREATININE 0.7 mg/dL (0.4-1.0); TOTAL PROTEIN 7.7 g/dL (6.7-8.2)
== END 2018-03-31 08:27 | disposition home or self-care (01) ==
LOC: LAB.F 08:26
PROVIDERS: ATTEND Physician Assistant Medical
DX: I10 Essential (primary) hypertension (principal)
CPT/HCPCS: 36415; 80053; 85025

== ENCOUNTER 2018-07-05 17:55 | Outpatient (CLI) | payer OTHER ==
--- NOTE | 2018-07-07 07:49 | XRAY Report ---
Reason: HIP JOINT PAIN,RIGHT Procedure Date: 07/05/2018 Accession Number: [id number] / [id number] Procedure: XR - Hip w/Pelvis 2-3V RT CPT Code: FULL RESULT: EXAM: RIGHT HIP RADIOGRAPHY EXAM DATE: 07/05/2018 06:44 PM. CLINICAL HISTORY: Right hip joint pain. COMPARISON: PELVIS 1 VIEW 02/04/2017 11:36 AM. TECHNIQUE: 2 views. FINDINGS: Bones: Healed left superior and inferior pubic rami fractures noted. No acute fracture is identified. No bony lesions. Minimal degenerative spurring. Joints: Normal alignment. Slight joint space narrowing of the superior right hip joint. No dislocation. Soft Tissues: Normal. No soft tissue swelling. IMPRESSION: 1. Mild degenerative changes of the right hip joint. 2. Healed left pubic rami fractures. RADIA
== END 2018-07-05 17:56 | disposition home or self-care (01) ==
LOC: DI 17:55
PROVIDERS: ATTEND Physician Assistant Medical
DX: M16.11 Unilateral primary osteoarthritis, right hip (principal)

== ENCOUNTER 2019-03-10 07:17 | Outpatient (CLI) | payer OTHER ==
[2019-03-10 10:48] LABS: BASOPHILS % (AUTO) 0.2 %; EOSINOPHILS # (AUTO) 0.2 10^3/uL (0.0-0.7); EOSINOPHILS % (AUTO) 3.4 %; HGB - HEMOGLOBIN 14.8 g/dL (12.0-16.0); LYMPHOCYTES # (AUTO) 1.7 10^3/uL (1.5-3.5); LYMPHOCYTES % (AUTO) 37.2 %; MEAN CORPUSCULAR HEMOGLOBIN 31.9 pg (27.0-31.0); MEAN CORPUSCULAR HGB CONC 34.8 g/dL (32.0-36.0); MEAN CORPUSCULAR VOLUME 91.6 fL (81.0-99.0); MEAN PLATELET VOLUME 9.5 fL (7.9-10.8); MONOCYTES # (AUTO) 0.3 10^3/uL (0.0-1.0); MONOCYTES % (AUTO) 6.3 %; NEUTROPHILS # (AUTO) 2.3 10^3/uL (1.5-6.6); NEUTROPHILS % (AUTO) 52.7 %; PLT - PLATELET COUNT 188 10^3/uL (130-450); RED BLOOD COUNT 4.64 10^6/uL (4.20-5.40); RED CELL DISTRIBUTION WIDTH 12.9 % (12.0-15.0); WHITE BLOOD COUNT 4.4 x10^3/uL (4.8-10.8)
[2019-03-10 11:36] LABS: ALBUMIN 4.9 g/dL (3.2-5.5); ALBUMIN/GLOBULIN RATIO 2.3 (1.0-2.2); ALKALINE PHOSPHATASE 45 IU/L (42-121); ALT ALANINE AMINOTRANSFERASE 27 IU/L (10-60); AST ASPARTATE AMINOTRANSFERASE 22 IU/L (10-42); BILIRUBIN,TOTAL 1.2 mg/dL (0.2-1.0); BUN - BLOOD UREA NITROGEN 21 mg/dL (6-20); CALCIUM 9.4 mg/dL (8.5-10.3); CARBON DIOXIDE - CO2 26 mmol/L (21-32); CHLORIDE 106 mmol/L (101-111); CHOL/HDL RATIO 5.3 (<4.4); CHOLESTEROL 306 mg/dL; CREATININE 0.9 mg/dL (0.4-1.0); GFR - MDRD 68 (>89); GLUCOSE 106 mg/dL (70-100); HDL CHOLESTEROL 58 mg/dL; LDL CHOLESTEROL,CALCULATED 224 mg/dL; LDL/HDL RATIO 3.9 (<4.4); SODIUM 140 mmol/L (135-145); VLDL CHOLESTEROL 24 mg/dL
== END 2019-03-10 07:18 | disposition home or self-care (01) ==
LOC: LAB.S 07:17
PROVIDERS: ATTEND Physician Assistant Medical
DX: I10 Essential (primary) hypertension (principal); Z13.220 Encounter for screening for lipoid disorders; Z13.29 Encounter for screening for other suspected endocrine disorder; Z51.81 Encounter for therapeutic drug level monitoring
CPT/HCPCS: 36415; 80053; 80061; 83721; 84443; 85025

== ENCOUNTER 2019-09-19 13:57 | Outpatient (CLI) | payer OTHER | END 2019-09-19 13:58 | disposition home or self-care (01) | LOC: LAB.S 13:57 | PROVIDERS: ATTEND Physician Assistant | DX: Z79.890 Hormone replacement therapy (principal) | CPT/HCPCS: 82670 ==

== ENCOUNTER 2020-01-03 12:43 | Outpatient (CLI) | payer OTHER ==
[2020-01-03 15:37] LABS: CREATININE 0.7 mg/dL (0.4-1.0)
[2020-01-03 16:02] LABS: THYROID STIMULATING HORMONE 0.73 uIU/mL (0.34-5.60)
[2020-01-03 16:04] LABS: FREE T3 2.95 pg/mL (2.5-3.9)
[2020-01-03 16:09] LABS: PROLACTIN 3.92 ng/mL
[2020-01-03 16:30] LABS: FOLLICLE STIMULATING HORMONE 24.91 mIU/mL
[2020-01-03 18:27] LABS: FREE T4 (FREE THYROXINE) 0.93 ng/dL (0.58-1.64)
[2020-01-04 06:27] LABS: ESTRADIOL 59 pg/mL
[2020-01-05 14:36] LABS: DHEA SULFATE 81 mcg/dL (19-231)
== END 2020-01-03 12:44 | disposition home or self-care (01) ==
LOC: LAB.S 12:43
PROVIDERS: ATTEND Internal Medicine
DX: F32.9 Major depressive disorder, single episode, unspecified (principal); Z78.0 Asymptomatic menopausal state; Z51.81 Encounter for therapeutic drug level monitoring; Z79.899 Other long term (current) drug therapy
CPT/HCPCS: 36415; 81599; 82565; 82627; 82670; 83001; 84146; 84402; 84403; 84439; 84443; 84481

== ENCOUNTER 2020-02-20 11:00 | Outpatient (CLI) | payer OTHER ==
[2020-02-20 17:13] LABS: BILIRUBIN,URINE NEGATIVE (NEGATIVE); GLUCOSE, URINE (UA) NEGATIVE (NEGATIVE); KETONES,URINE (UA) NEGATIVE (NEGATIVE); LEUKOCYTE ESTERASE, URINE NEGATIVE (NEGATIVE); NITRITE,URINE NEGATIVE (NEGATIVE); OCCULT BLOOD,URINE NEGATIVE (NEGATIVE); PH,URINE 6.5 PH (5.0-7.5); PROTEIN,URINE NEGATIVE (NEGATIVE); UROBILINOGEN,URINE 0.2 (NORMAL) E.U./dL (NORMAL)
[2020-02-20 17:14] LABS: CLARITY,URINE CLEAR (CLEAR)
== END 2020-02-20 23:59 | disposition home or self-care (01) ==
LOC: LAB.R 11:00
PROVIDERS: ATTEND Physician Assistant
DX: N30.90 Cystitis, unspecified without hematuria (principal)
CPT/HCPCS: 81001; 81003; 87086

== ENCOUNTER 2020-02-21 07:14 | Outpatient (CLI) | payer OTHER ==
[2020-02-21 15:53] LABS: BILIRUBIN,URINE NEGATIVE (NEGATIVE); GLUCOSE, URINE (UA) NEGATIVE (NEGATIVE); KETONES,URINE (UA) NEGATIVE (NEGATIVE); LEUKOCYTE ESTERASE, URINE NEGATIVE (NEGATIVE); NITRITE,URINE NEGATIVE (NEGATIVE); OCCULT BLOOD,URINE NEGATIVE (NEGATIVE); PH,URINE 6.5 PH (5.0-7.5); PROTEIN,URINE NEGATIVE (NEGATIVE); UROBILINOGEN,URINE 0.2 (NORMAL) E.U./dL (NORMAL)
[2020-02-21 15:56] LABS: BASOPHILS % (AUTO) 0.5 %; EOSINOPHILS # (AUTO) 0.2 10^3/uL (0.0-0.7); EOSINOPHILS % (AUTO) 3.8 %; HGB - HEMOGLOBIN 15.6 g/dL (12.0-16.0); LYMPHOCYTES # (AUTO) 1.8 10^3/uL (1.5-3.5); LYMPHOCYTES % (AUTO) 29.4 %; MEAN CORPUSCULAR HEMOGLOBIN 32.6 pg (27.0-31.0); MEAN CORPUSCULAR HGB CONC 34.5 g/dL (32.0-36.0); MEAN CORPUSCULAR VOLUME 94.6 fL (81.0-99.0); MEAN PLATELET VOLUME 9.4 fL (7.9-10.8); MONOCYTES # (AUTO) 0.3 10^3/uL (0.0-1.0); MONOCYTES % (AUTO) 4.6 %; NEUTROPHILS # (AUTO) 3.8 10^3/uL (1.5-6.6); NEUTROPHILS % (AUTO) 61.4 %; PLT - PLATELET COUNT 211 10^3/uL (130-450); RED BLOOD COUNT 4.78 10^6/uL (4.20-5.40); RED CELL DISTRIBUTION WIDTH 13.1 % (12.0-15.0); WHITE BLOOD COUNT 6.3 x10^3/uL (4.8-10.8)
[2020-02-21 16:01] LABS: BACTERIA,URINE Many /HPF (None Seen); CLARITY,URINE HAZY (CLEAR); RBC,URINE None Seen /HPF (0-5); SQUAMOUS EPITHELIAL CELL,UR MANY Squamous (<= Few)
[2020-02-21 16:29] LABS: ALBUMIN 4.4 g/dL (3.2-5.5); ALBUMIN/GLOBULIN RATIO 1.7 (1.0-2.2); ALKALINE PHOSPHATASE 62 IU/L (42-121); ALT ALANINE AMINOTRANSFERASE 25 IU/L (10-60); AST ASPARTATE AMINOTRANSFERASE 20 IU/L (10-42); BUN - BLOOD UREA NITROGEN 22 mg/dL (6-20); CALCIUM 9.2 mg/dL (8.5-10.3); CARBON DIOXIDE - CO2 21 mmol/L (21-32); CHLORIDE 107 mmol/L (101-111); CHOL/HDL RATIO 3.5 (<4.4); CHOLESTEROL 163 mg/dL; CREATININE 0.8 mg/dL (0.4-1.0); GLUCOSE 96 mg/dL (70-100); HDL CHOLESTEROL 46 mg/dL; LDL CHOLESTEROL,CALCULATED 67 mg/dL; LDL/HDL RATIO 1.5 (<4.4); SODIUM 139 mmol/L (135-145); VLDL CHOLESTEROL 50 mg/dL
== END 2020-02-21 07:15 | disposition home or self-care (01) ==
LOC: LAB.S 07:14
PROVIDERS: ATTEND Physician Assistant
DX: I10 Essential (primary) hypertension (principal); Z79.899 Other long term (current) drug therapy; Z13.29 Encounter for screening for other suspected endocrine disorder; E78.2 Mixed hyperlipidemia; N30.10 Interstitial cystitis (chronic) without hematuria; R19.7 Diarrhea, unspecified; F41.9 Anxiety disorder, unspecified; F32.9 Major depressive disorder, single episode, unspecified
CPT/HCPCS: 36415; 80053; 80061; 81001; 81599; 83721; 84443; 85025; 87045; 87046; 87086; 87177; 87209; 87427; 87493

== ENCOUNTER 2020-02-21 10:05 | Outpatient (CLI) | payer OTHER | END 2020-02-21 23:59 | LOC: LAB.R 10:05 | PROVIDERS: ATTEND Physician Assistant | DX: R19.7 Diarrhea, unspecified (principal) | CPT/HCPCS: 82274 ==

== ENCOUNTER 2020-03-08 14:00 | Outpatient (CLI) | payer OTHER | END 2020-03-08 23:59 | disposition home or self-care (01) | LOC: LAB.R 14:00 | PROVIDERS: ATTEND Physician Assistant | DX: R19.7 Diarrhea, unspecified (principal) | CPT/HCPCS: 81599; 82274; 87045; 87046; 87177; 87209; 87427; 87493 ==

== ENCOUNTER 2020-03-15 09:40 | Outpatient (CLI) | payer OTHER | END 2020-03-15 23:59 | disposition home or self-care (01) | LOC: LAB.R 09:40 | PROVIDERS: ATTEND Physician Assistant | DX: R19.7 Diarrhea, unspecified (principal) | CPT/HCPCS: 87493 ==

== ENCOUNTER 2020-03-26 12:54 | Outpatient (CLI) | payer OTHER ==
[2020-03-26 20:26] LABS: BASOPHILS % (AUTO) 0.5 %; EOSINOPHILS # (AUTO) 0.2 10^3/uL (0.0-0.7); EOSINOPHILS % (AUTO) 2.9 %; HGB - HEMOGLOBIN 14.8 g/dL (12.0-16.0); LYMPHOCYTES # (AUTO) 1.5 10^3/uL (1.5-3.5); LYMPHOCYTES % (AUTO) 26.3 %; MEAN CORPUSCULAR HGB CONC 34.7 g/dL (32.0-36.0); MEAN CORPUSCULAR VOLUME 92.2 fL (81.0-99.0); MEAN PLATELET VOLUME 9.7 fL (7.9-10.8); MONOCYTES # (AUTO) 0.2 10^3/uL (0.0-1.0); MONOCYTES % (AUTO) 3.9 %; NEUTROPHILS # (AUTO) 3.7 10^3/uL (1.5-6.6); NEUTROPHILS % (AUTO) 66.4 %; PLT - PLATELET COUNT 215 10^3/uL (130-450); RED BLOOD COUNT 4.63 10^6/uL (4.20-5.40); RED CELL DISTRIBUTION WIDTH 12.9 % (12.0-15.0); WHITE BLOOD COUNT 5.6 x10^3/uL (4.8-10.8)
[2020-03-26 20:50] LABS: CALCIUM 9.4 mg/dL (8.5-10.3); CREATININE 0.7 mg/dL (0.4-1.0)
== END 2020-03-26 12:55 | disposition home or self-care (01) ==
LOC: LAB.S 12:54
PROVIDERS: ATTEND Internal Medicine
DX: E28.39 Other primary ovarian failure (principal); R19.7 Diarrhea, unspecified; A04.72 Enterocolitis due to Clostridium difficile, not specified as recurrent; Z79.899 Other long term (current) drug therapy
CPT/HCPCS: 36415; 80048; 83001; 85025

== ENCOUNTER 2020-10-24 13:09 | Outpatient (CLI) | payer OTHER ==
[2020-10-24 19:45] LABS: BASOPHILS % (AUTO) 0.7 %; EOSINOPHILS # (AUTO) 0.1 10^3/uL (0.0-0.7); EOSINOPHILS % (AUTO) 2.5 %; HCT - HEMATOCRIT 42.7 % (37.0-47.0); HGB - HEMOGLOBIN 14.9 g/dL (12.0-16.0); LYMPHOCYTES # (AUTO) 1.5 10^3/uL (1.5-3.5); LYMPHOCYTES % (AUTO) 26.6 %; MEAN CORPUSCULAR HEMOGLOBIN 32.7 pg (27.0-31.0); MEAN CORPUSCULAR HGB CONC 34.9 g/dL (32.0-36.0); MEAN CORPUSCULAR VOLUME 93.6 fL (81.0-99.0); MEAN PLATELET VOLUME 9.6 fL (7.9-10.8); MONOCYTES # (AUTO) 0.3 10^3/uL (0.0-1.0); MONOCYTES % (AUTO) 4.5 %; NEUTROPHILS # (AUTO) 3.6 10^3/uL (1.5-6.6); NEUTROPHILS % (AUTO) 65.3 %; PLT - PLATELET COUNT 191 10^3/uL (130-450); RED BLOOD COUNT 4.56 10^6/uL (4.20-5.40); RED CELL DISTRIBUTION WIDTH 13.5 % (12.0-15.0); WHITE BLOOD COUNT 5.5 x10^3/uL (4.8-10.8)
[2020-10-24 20:01] LABS: ALBUMIN 4.8 g/dL (3.2-5.5); ALBUMIN/GLOBULIN RATIO 1.7 (1.0-2.2); BILIRUBIN,TOTAL 1.2 mg/dL (0.2-1.0); CALCIUM 9.9 mg/dL (8.5-10.3); CREATININE 0.7 mg/dL (0.4-1.0); POTASSIUM 3.5 mmol/L (3.5-5.0); TOTAL PROTEIN 7.6 g/dL (6.7-8.2)
[2020-10-24 20:15] LABS: THYROID STIMULATING HORMONE 2.75 uIU/mL (0.34-5.60)
== END 2020-10-24 13:10 | disposition home or self-care (01) ==
LOC: LAB.S 13:09
PROVIDERS: ATTEND Physician Assistant
DX: I10 Essential (primary) hypertension (principal); R42 Dizziness and giddiness; F33.9 Major depressive disorder, recurrent, unspecified; F41.9 Anxiety disorder, unspecified; Z79.899 Other long term (current) drug therapy
CPT/HCPCS: 36415; 80053; 84443; 85025

== ENCOUNTER 2020-12-17 07:54 | Outpatient (CLI) | payer OTHER | END 2020-12-17 23:59 | disposition home or self-care (01) | LOC: LAB.S 07:54 | PROVIDERS: ATTEND Physician Assistant Medical | DX: R30.0 Dysuria (principal) | CPT/HCPCS: 87086 ==

== ENCOUNTER 2021-03-17 13:09 | Outpatient (CLI) | payer OTHER ==
--- NOTE | 2021-03-18 15:49 | Mammography Report ---
BILATERAL DIGITAL SCREENING MAMMOGRAM 3D/2D WITH EXAGGERATED CC: 03/17/2021 CLINICAL: Family history of breast cancer. Routine screening. Comparison is made to exams dated: 02/01/2018 mammogram and 03/22/2015 mammogram - [facility]. The tissue of both breasts is heterogeneously dense. This may lower the sensitivity of m ammography. There are benign post operative findings in both breasts. No significant masses, calcifications, or other findings are seen in either breast. IMPRESSION: BENIGN There is no mammographic evidence of malignancy. A 1 year screening mammogram is recommended. This exam was interpreted at Station ID: [id number]. NOTE: For mammograms, a report in lay terms will be sent to the patient. Approximately 15% of breast malignancies will not be visualized mammographically. In the management of a palpable breast mass, a negative mammogram must not discourage biopsy of a clinically suspicious lesion. Electronically Signed By: Jeff Goldstein M.D. aty/penrad:03/17/2021 22:37:24 ACR BI-RADS Category 2: Benign Finding(s) 3342F PARENCHYMAL PATTERN: (D) - The breast(s) demonstrate(s) heterogeneously dense fibroglandular parnatasha cannon. BI-RADS CATEGORY: (2) - 2 RECOMMENDATION: (ANNUAL) - Recommend routine annual screening mammography. [id number] 1 year screening LATERALITY: (B)
== END 2021-03-17 13:10 | disposition home or self-care (01) ==
LOC: DI.S 13:09
DX: Z12.31 Encounter for screening mammogram for malignant neoplasm of breast (principal); Z80.3 Family history of malignant neoplasm of breast

== ENCOUNTER 2021-05-08 08:00 | Outpatient (CLI) | payer OTHER ==
--- NOTE | 2021-05-09 09:47 | XRAY Report ---
PROCEDURE: Chest 2 View X-Ray INDICATIONS: COVID-19 INFECTION TECHNIQUE: 2 view(s) of the chest. COMPARISON: Prior chest radiograph dated 06/30/2016 FINDINGS: Surgical changes and devices: None. Lungs and pleura: No pleural effusions or pneumothorax. Lungs are clear. Mediastinum: Mediastinal contours are normal. Heart size is normal. Bones and chest wall: No suspicious bony abnormalities. Soft tissues appear unremarkable. IMPRESSION: No acute cardiopulmonary disease. Reviewed by: DA Larios on 05/09/2021 9:46 AM PST Approved by: Cristopher Morales MD on 05/09/2021 9:46 AM PST Station ID: [id number]
== END 2021-05-08 23:59 | disposition home or self-care (01) ==
LOC: DI.S 08:00
PROVIDERS: ATTEND Emergency Medicine
DX: U07.1 COVID-19 (principal)

== ENCOUNTER 2021-07-31 09:33 | Outpatient (CLI) | payer OTHER ==
[2021-07-31 14:23] LABS: BASOPHILS % (AUTO) 0.6 %; EOSINOPHILS # (AUTO) 0.1 10^3/uL (0.0-0.7); EOSINOPHILS % (AUTO) 1.7 %; HGB - HEMOGLOBIN 15.1 g/dL (12.0-16.0); LYMPHOCYTES # (AUTO) 1.5 10^3/uL (1.5-3.5); LYMPHOCYTES % (AUTO) 31.9 %; MEAN CORPUSCULAR HEMOGLOBIN 32.3 pg (27.0-31.0); MEAN CORPUSCULAR HGB CONC 35.1 g/dL (32.0-36.0); MEAN CORPUSCULAR VOLUME 92.1 fL (81.0-99.0); MEAN PLATELET VOLUME 9.5 fL (7.9-10.8); MONOCYTES # (AUTO) 0.2 10^3/uL (0.0-1.0); MONOCYTES % (AUTO) 3.8 %; NEUTROPHILS % (AUTO) 61.8 %; PLT - PLATELET COUNT 203 10^3/uL (130-450); RED BLOOD COUNT 4.67 10^6/uL (4.20-5.40); RED CELL DISTRIBUTION WIDTH 12.6 % (12.0-15.0); WHITE BLOOD COUNT 4.8 x10^3/uL (4.8-10.8)
[2021-07-31 14:54] LABS: ALBUMIN 4.7 g/dL (3.2-5.5); ALBUMIN/GLOBULIN RATIO 1.7 (1.0-2.2); ALKALINE PHOSPHATASE 53 IU/L (42-121); ALT ALANINE AMINOTRANSFERASE 27 IU/L (10-60); AST ASPARTATE AMINOTRANSFERASE 27 IU/L (10-42); BILIRUBIN,TOTAL 1.3 mg/dL (0.2-1.0); BUN - BLOOD UREA NITROGEN 19 mg/dL (6-20); CALCIUM 9.5 mg/dL (8.5-10.3); CARBON DIOXIDE - CO2 18 mmol/L (21-32); CHLORIDE 107 mmol/L (101-111); CHOL/HDL RATIO 3.3 (<4.4); CHOLESTEROL 176 mg/dL; CREATININE 0.9 mg/dL (0.4-1.0); GFR - MDRD 67 (>89); GLUCOSE 107 mg/dL (70-100); HDL CHOLESTEROL 54 mg/dL; LDL CHOLESTEROL,CALCULATED 88 mg/dL; LDL/HDL RATIO 1.6 (<4.4); POTASSIUM 3.5 mmol/L (3.5-5.0); SODIUM 140 mmol/L (135-145); TOTAL PROTEIN 7.5 g/dL (6.7-8.2); TRIGLYCERIDES 170 mg/dL; VLDL CHOLESTEROL 34 mg/dL
[2021-07-31 15:13] LABS: THYROID STIMULATING HORMONE 4.55 uIU/mL (0.34-5.60)
== END 2021-07-31 09:34 | disposition home or self-care (01) ==
LOC: LAB.S 09:33
PROVIDERS: ATTEND Registered Nurse
DX: Z98.84 Bariatric surgery status (principal); Z79.899 Other long term (current) drug therapy; F50.81 Binge eating disorder; F41.8 Other specified anxiety disorders; E78.2 Mixed hyperlipidemia; I10 Essential (primary) hypertension
CPT/HCPCS: 36415; 80053; 80061; 82306; 82607; 83721; 84443; 85025

== ENCOUNTER 2021-12-02 08:00 | Outpatient (CLI) | payer OTHER | END 2021-12-02 23:59 | disposition home or self-care (01) | LOC: LAB 08:00 | PROVIDERS: ATTEND Registered Nurse | DX: R30.0 Dysuria (principal); N30.90 Cystitis, unspecified without hematuria | CPT/HCPCS: 87086 ==

== ENCOUNTER 2021-12-19 16:43 | Emergency (ER) | payer OTHER ==
[2021-12-19 17:16] LABS: BASOPHILS % (AUTO) 0.7 %; EOSINOPHILS # (AUTO) 0.1 10^3/uL (0.0-0.7); EOSINOPHILS % (AUTO) 2.3 %; HCT - HEMATOCRIT 39.7 % (37.0-47.0); HGB - HEMOGLOBIN 13.8 g/dL (12.0-16.0); LYMPHOCYTES % (AUTO) 36.8 %; MEAN CORPUSCULAR HEMOGLOBIN 31.9 pg (27.0-31.0); MEAN CORPUSCULAR HGB CONC 34.8 g/dL (32.0-36.0); MEAN CORPUSCULAR VOLUME 91.9 fL (81.0-99.0); MEAN PLATELET VOLUME 9.2 fL (7.9-10.8); MONOCYTES # (AUTO) 0.2 10^3/uL (0.0-1.0); MONOCYTES % (AUTO) 4.2 %; NEUTROPHILS # (AUTO) 3.1 10^3/uL (1.5-6.6); NEUTROPHILS % (AUTO) 55.6 %; PLT - PLATELET COUNT 176 10^3/uL (130-450); RED BLOOD COUNT 4.32 10^6/uL (4.20-5.40); RED CELL DISTRIBUTION WIDTH 13.2 % (12.0-15.0); WHITE BLOOD COUNT 5.5 x10^3/uL (4.8-10.8)
[2021-12-19 17:27] LABS: ALBUMIN 4.7 g/dL (3.2-5.5); ALBUMIN/GLOBULIN RATIO 1.8 (1.0-2.2); BILIRUBIN,TOTAL 0.9 mg/dL (0.2-1.0); CALCIUM 9.6 mg/dL (8.5-10.3); CREATININE 0.9 mg/dL (0.4-1.0); POTASSIUM 3.8 mmol/L (3.5-5.0); TOTAL PROTEIN 7.3 g/dL (6.7-8.2)
[2021-12-19 18:52] LABS: BILIRUBIN,URINE NEGATIVE (NEGATIVE); GLUCOSE, URINE (UA) NEGATIVE (NEGATIVE); KETONES,URINE (UA) NEGATIVE (NEGATIVE); LEUKOCYTE ESTERASE, URINE NEGATIVE (NEGATIVE); NITRITE,URINE NEGATIVE (NEGATIVE); OCCULT BLOOD,URINE NEGATIVE (NEGATIVE); PH,URINE 6.5 PH (5.0-7.5); PROTEIN,URINE NEGATIVE (NEGATIVE); UROBILINOGEN,URINE 0.2 (NORMAL) E.U./dL (NORMAL)
[2021-12-19 18:54] LABS: CLARITY,URINE CLEAR (CLEAR); HCG UR QUAL NEGATIVE
[2021-12-19] MEDS ORDERED: HYDROmorphone 1 MG/ML CARPUJECT IVP STA ×2 (19:05→20:40)
--- NOTE | 2021-12-19 19:06 | ED Physician Documentation ---
PD HPI ABD PAIN - Stated complaint Stated Complaint: R FLANK PX - Chief complaint Chief Complaint: Abd Pain - History obtained from History obtained from: Patient - Additional information Additional information: 45-year-old woman with history of appendectomy, hysterectomy, and interstitial cystitis presents with several months worth of right upper quadrant pain. There is no particular pattern to it. Sometimes mild, sometimes severe. She does not notice any change with eating. She went to the urgent care today and was referred here for further evaluation and treatment. Review of Systems Ten Systems: 10 systems reviewed and negative Constitutional: denies: Fever, Chills Throat: reports: Reviewed and negative Cardiac: reports: Reviewed and negative Respiratory: reports: Reviewed and negative PD PAST MEDICAL HISTORY - Past Medical History Cardiovascular: None Respiratory: None Endocrine/Autoimmune: None GI: GERD, Hiatal hernia, Chronic constipation [employer]ING[employer]: Endometriosis : Other HEENT: Chronic hearing loss Psych: Depression, Anxiety Musculoskeletal: None, Chronic back pain - Past Surgical History Past Surgical History: Yes General: Appendectomy Ortho: Carpal Tunnel surgery /[employer]ING [employer]ACH[employer]: Endometrial ablation, Oophrectomy, Other - Present Medications Home Medications: Ambulatory Orders Medication Instructions Recorded Confirmed Famotidine 40 mg PO BID 06/30/16 03/08/17 Topiramate [Topamax] 50 mg PO BID 06/30/16 03/08/17 Escitalopram [Lexapro] 20 mg PO DAILY #30 tablet 07/03/16 03/08/17 Aripiprazole [Abilify] 2 mg PO DAILY 12/18/16 03/08/17 Tolterodine [Detrol LA] 2 mg PO BID #20 capsule 03/08/17 metFORMIN [Glucophage] 500 mg PO BID 03/08/17 03/08/17 Amitriptyline [Elavil] 25 mg PO QPM #30 tablet 12/19/21 HYDROcod/ACETAM 5/325 [[place] 5/325] 1 - 2 tab PO Q6H PRN #15 tablet 12/19/21 Omeprazole 40 mg PO DAILY #30 cap 12/19/21 Ondansetron Odt [Zofran] 4 mg TL Q6H PRN #10 tablet 12/19/21 - Allergies Allergies/Adverse Reactions: Allergies Allergy/AdvReac Type Severity Reaction Status Date / Time shellfish derived Allergy Itching Verified 12/19/21 17:00 Sulfa (Sulfonamide Allergy Rash Verified 12/19/21 17:00 Antibiotics) - Social History Does the pt smoke?: No Smoking Status: Former smoker Does the pt drink ETOH?: No Does the pt have substance abuse?: No - Immunizations Immunizations are current?: Yes - POLST POLST Status: Full Code PD ED PE NORMAL - Vitals Vital signs reviewed: Yes - General General: Alert and oriented X 3 - Cardiac Cardiac: RRR, No murmur - Respiratory Respiratory: No respiratory distress, Clear bilaterally - Abdomen Abdomen: Other (Focally tender in the right upper quadrant with positive Franco sign. She is tearful.) - Derm Derm: Normal color, Warm and dry - Neuro Neuro: Alert and oriented X 3, Normal speech Results - Vitals Vitals: Vital Signs - 24 hr 12/19/21 12/19/21 12/19/21 16:57 19:15 20:34 Temperature 36.8 C Heart Rate 94 64 69 Respiratory 18 16 16 Rate Blood Pressure 147/92 H 110/71 107/66 O2 Saturation 98 99 96 Oxygen O2 Source Room air - Labs Labs: Laboratory Tests 12/19/21 12/19/21 12/19/21 17:11 17:11 18:40 WBC 5.5 RBC 4.32 Hgb 13.8 Hct 39.7 MCV 91.9 MCH 31.9 H MCHC 34.8 RDW 13.2 Plt Count 176 MPV 9.2 Neut # (Auto) 3.1 Lymph # (Auto) 2.0 [place] # (Auto) 0.2 Eos # (Auto) 0.1 Baso # (Auto) 0.0 Absolute Nucleated RBC 0.00 Nucleated RBC % 0.0 Sodium 138 Potassium 3.8 Chloride 107 Carbon Dioxide 24 Anion Gap 7.0 BUN 21 H Creatinine 0.9 Estimated GFR (MDRD) 67 L Glucose 90 Calcium 9.6 Total Bilirubin 0.9 AST 18 ALT 16 Alkaline Phosphatase 51 Total Protein 7.3 Albumin 4.7 Globulin 2.6 Albumin/Globulin Ratio 1.8 Lipase 45 Urine Color YELLOW Urine Clarity CLEAR Urine pH 6.5 Ur Specific [place] 1.020 Urine Protein NEGATIVE Urine Glucose (UA) NEGATIVE Urine Ketones NEGATIVE Urine Occult Blood NEGATIVE Urine Nitrite NEGATIVE Urine Bilirubin NEGATIVE Urine Urobilinogen 0.2 (NORMAL) Ur Leukocyte Esterase NEGATIVE Ur Microscopic Review NOT INDICATED Urine Culture Comments NOT INDICATED Urine HCG, Qual NEGATIVE - Rads (name of study) CT KUB and right upper quadrant ultrasound are grossly negative without gallstones or other findings explaining her pain. Radiology: EMP read contemporaneously PD MEDICAL DECISION MAKING - ED course ED course: 45-year-old woman presents with right upper quadrant pain of several months duration. Seems like a biliary origin based on exam but negative ultrasound and labs. This was followed by a CT which was also negative. Further history obtained, she has a history of interstitial cystitis and endometriosis. We trialed a GI cocktail which was ineffective. Her pain did get much better with medications here. She is seeing urology on Thursday for initiation of treatment for interstitial cystitis, has been on amitriptyline in the past and would like to restart pending that consultation which is not unreasonable. Discussed need for further work-up and return precautions. Departure - Departure Disposition: Home, Self Care Clinical Impression: Abdominal pain Condition: Good Record reviewed to determine appropriate education?: Yes Instructions: ED Abdominal Pain Female Non-Specific Abdominal Pain Prescriptions: Amitriptyline [Elavil] 25 mg PO QPM #30 tablet HYDROcod/ACETAM 5/325 [[place] 5/325] 1 - 2 tab PO Q6H PRN #15 tablet PRN Reason: Pain Omeprazole 40 mg PO DAILY #30 cap Ondansetron Odt [Zofran] 4 mg TL Q6H PRN #10 tablet PRN Reason: Nausea / Vomiting Comments: I sent your prescription to [facility] in [place]. Followup with your PCP, consider HIDA scan, +/- upper endoscopy. Call your doctor to arrange a follow-up appointment, make the next available appointment. In the interim, return anytime if worse or if new symptoms develop. I am prescribing a short course of narcotic pain medication for you. These are potentially dangerous and addictive medications that should be used carefully. These medications may constipate you. Take an [id number] stool softener (docusate) twice daily with plenty of water while taking these medications. If you go 24 hours without a bowel movement, take [id number] miralax, per package instructions. Do not drink or drive while taking these medications. If you received narcotic or sedating medications while in the emergency department, do not drive for 24 hours. Store this medication in a safe, secure place and out of reach of children. It is a violation of federal law to give or sell this medication to another person or to use in a manner other than prescribed. The ED will not refill narcotic prescriptions, including prescriptions lost or stolen. To dispose of unwanted medications: 1. [facility] at [address] in [place] has a medication drop box. They accept prescription medications (in pill form) Thursday through Thursday 9:00 a.m. to 5:00 p.m. 2. The [facility] accepts prescription medications (in pill form only) for disposal year round. Call for more information. 3. Contact the [facility] for the next [employer] sponsored prescription drug collection event. , [phone], or [phone]; Note that many narcotic pain relievers also contain Tylenol/acetaminophen. Please ensure that your total dose of acetaminophen from all sources does not exceed 3 g (3000 mg) per day.
[2021-12-19] MEDS ORDERED: KETOROLAC 15 MG/ML VIAL IVP STA (20:40)
[2021-12-19] MEDS ORDERED: LIDOCAINE VISCOUS 2% 15 ML UDC MM STA (21:42)
[2021-12-19] MEDS ORDERED: MAG HYDROX/AL HYDROX/SIMETH 30 ML UDC PO STA (21:42)
--- NOTE | 2021-12-19 21:58 | Ultrasound Report ---
PROCEDURE: Abdomen Limited INDICATIONS: Right upper quadrant pain TECHNIQUE: Real-time focused scanning was performed of the abdomen, with image documentation. COMPARISON: CT of the pelvis 12/17/2016, 12/19/2021. Ultrasound abdomen 01/06/2014 FINDINGS: The liver demonstrates increased echogenicity consistent with fatty infiltration. There is an indisti nct small hypoechoic region in the left lateral lobe measuring up to approximately 0.5 cm which may r epresent focal fatty sparing. Gallbladder demonstrates no stones, wall thickening, or pericholecystic fluid. No intra or extra hepatic biliary ductal dilatation. The visualized common bile duct measures up to 0 .5 cm. Right kidney measures up to 9.9 cm. No hydronephrosis. The pancreas was not well seen sonographically. IMPRESSION: 1. No evidence of cholelithiasis or cholecystitis. 2. Increased hepatic echogenicity compatible with steatosis. 3. Indistinct hypoechoic focus within the left hepatic lobe is nonspecific and may represent a region of focal fatty sparing. Reviewed by: Jairo Cantrell MD on 12/19/2021 9:57 PM PDT Approved by: Jairo Cantrell MD on 12/19/2021 9:57 PM PDT Station ID: [id number]
--- NOTE | 2021-12-19 22:12 | CT Report ---
PROCEDURE: Abdomen/Pelvis WO INDICATIONS: RUQ pain TECHNIQUE: Noncontrast 5 mm thick sections acquired from the diaphragms to the symphysis. 5 mm coronal and sagi ttal reformats were then performed. For radiation dose reduction, the following was used: automated exposure control, adjustment of mA and/or kV according to patient size. COMPARISON: Concurrent abdominal ultrasound 12/19/2021. FINDINGS: Image quality: Excellent. Lung bases: Unremarkable. Heart: Heart is normal in size. ABDOMEN: Liver:Noncontrast evaluation of the liver demonstrates no discrete mass. Gallbladder: Within normal limits without calcified gallstones. Biliary ducts: No biliary ductal dilatation. Pancreas: Unremarkable. Spleen: Normal in size. Adrenal Glands: No adrenal nodules. Kidneys and Ureters: No hydronephrosis. Stomach and Bowel: There are surgical sutures along the stomach. Stomach, small bowel loops, and col on are normal in caliber and wall thickness. No pericecal inflammatory changes to suggest appendiciti s. Peritoneum: No abnormal intraperitoneal fluid. No free air. Ventral Wall: No hernia. Abdominal Nodes: No retroperitoneal or mesenteric adenopathy by size criteria. Vessels: Aorta and inferior vena cava are normal in size. PELVIS: Pelvic Organs:The uterus is surgically absent. Bladder: Unremarkable. Pelvic Nodes: No enlarged lymph nodes. Miscellaneous: No inguinal hernias are seen. Bones: Visualized osseous structures demonstrate no suspicious focal lesions. IMPRESSION: 1. No definite acute intra-abdominal abnormality. Specifically, no CT evidence of acute cholecystitis or biliary ductal dilatation. Reviewed by: Jairo Cantrell MD on 12/19/2021 10:11 PM PDT Approved by: Jairo Cantrell MD on 12/19/2021 10:11 PM PDT Station ID: [id number]
[2021-12-19] MEDS ORDERED: ONDANSETRON 4 MG/2 ML VIAL IVP STA (22:33)
[2021-12-19] MEDS ORDERED: ONDANSETRON ODT 4 MG Prepack 2 TL STA (22:33)
[2021-12-19] MEDS ORDERED: HYDROcod/ACET 5/325 Prepack 4 PO STA (22:33)
[2021-12-19 22:49] VITALS: BP 103/66
== END 2021-12-19 22:49 | disposition home or self-care (01) ==
LOC: ED 16:43
DX: R10.11 Right upper quadrant pain (principal); N30.10 Interstitial cystitis (chronic) without hematuria; Z87.891 Personal history of nicotine dependence
CPT/HCPCS: 36415; 74176; 76705; 80053; 81003; 81025; 83690; 85025; 96374; 96375; 96376; 99284; A9270; J1170; 81001; 87086

== ENCOUNTER 2021-12-31 19:14 | Emergency (ER) | payer OTHER ==
[2021-12-31 19:41] LABS: BASOPHILS % (AUTO) 0.6 %; EOSINOPHILS # (AUTO) 0.2 10^3/uL (0.0-0.7); EOSINOPHILS % (AUTO) 2.4 %; HCT - HEMATOCRIT 43.3 % (37.0-47.0); HGB - HEMOGLOBIN 14.9 g/dL (12.0-16.0); LYMPHOCYTES # (AUTO) 1.9 10^3/uL (1.5-3.5); LYMPHOCYTES % (AUTO) 25.7 %; MEAN CORPUSCULAR HEMOGLOBIN 31.6 pg (27.0-31.0); MEAN CORPUSCULAR HGB CONC 34.4 g/dL (32.0-36.0); MEAN CORPUSCULAR VOLUME 91.7 fL (81.0-99.0); MEAN PLATELET VOLUME 8.9 fL (7.9-10.8); MONOCYTES # (AUTO) 0.4 10^3/uL (0.0-1.0); MONOCYTES % (AUTO) 4.9 %; NEUTROPHILS # (AUTO) 4.8 10^3/uL (1.5-6.6); NEUTROPHILS % (AUTO) 66.1 %; PLT - PLATELET COUNT 193 10^3/uL (130-450); RED BLOOD COUNT 4.72 10^6/uL (4.20-5.40); RED CELL DISTRIBUTION WIDTH 12.6 % (12.0-15.0); WHITE BLOOD COUNT 7.2 x10^3/uL (4.8-10.8)
[2021-12-31 19:54] LABS: ALBUMIN/GLOBULIN RATIO 1.6 (1.0-2.2); POTASSIUM 3.9 mmol/L (3.5-5.0); TOTAL PROTEIN 8.2 g/dL (6.7-8.2)
--- NOTE | 2021-12-31 20:29 | ED Physician Documentation ---
PD HPI ABD PAIN - Stated complaint Stated Complaint: ABD PX - Chief complaint Chief Complaint: Abd Pain - History obtained from History obtained from: Patient - History of Present Illness Timing - onset: How many days ago (5) Timing - details: Gradual onset, Waxing and waning Quality: Cramping Location: All over / everywhere Improved by: Other (nothing) Worsened by: Palpation Associated symptoms: Constipation. No: Fever, Nausea, Vomiting Recently seen: Clinic, Emergency Dept - Additional information Additional information: c/o 5 days of generalized abdominal pain and no stool output during same timeframe. She has not had any output nor improvement despite enema x 2 at home as well as Ex-Lax, mineral oil. Patient was T+R from this ED 12/19/21 for abdominal pain, unremarkable work-up at that time which included UA, CBC, ER abdominal panel, abdominal US, and abdominal CT. She was evaluated 3 days ago in clinic and was prescribed vicodin as well as keflex (for UTI). She was also provided rx for vicodin from this ED on 12/19/21 (I do not see any other narcotic analgesia prescriptions on her rx history over past year; before 12/19/21 visit she had not been in this ED since 2017, and infrequent visits prior to that) Review of Systems Constitutional: reports: Reviewed and negative Cardiac: reports: Reviewed and negative Respiratory: reports: Reviewed and negative GI: reports: Abdominal Pain, Constipation. 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: Endometriosis : Other HEENT: Chronic hearing loss Psych: Depression, Anxiety Musculoskeletal: None, Chronic back pain Derm: None - Past Surgical History Past Surgical History: Yes General: Appendectomy Ortho: Carpal Tunnel surgery /MULTI SKILLED OPERATOR: Endometrial ablation, Oophrectomy, Other - Present Medications Home Medications: Ambulatory Orders Medication Instructions Recorded Confirmed Topiramate [Topamax] 50 mg PO BID 06/30/16 12/31/21 Escitalopram [Lexapro] 20 mg PO DAILY #30 tablet 07/03/16 12/31/21 Tolterodine [Detrol LA] 2 mg PO BID #20 capsule 03/08/17 metFORMIN [Glucophage] 500 mg PO BID 03/08/17 03/08/17 HYDROcod/ACETAM 5/325 [[place] 5/325] 1 - 2 tab PO Q6H PRN #15 tablet 12/19/21 12/31/21 ARIPiprazole [Abilify] 5 mg PO DAILY 12/31/21 12/31/21 Amitriptyline HCl 50 mg PO DAILY 12/31/21 12/31/21 cephALEXin [Keflex] 500 mg PO BID 12/31/21 12/31/21 lamoTRIgine [Lamictal Xr] 50 mg PO DAILY 12/31/21 12/31/21 - Allergies Allergies/Adverse Reactions: Allergies Allergy/AdvReac Type Severity Reaction Status Date / Time shellfish derived Allergy Itching Verified 12/31/21 19:17 Sulfa (Sulfonamide Allergy Rash Verified 12/31/21 19:17 Antibiotics) - Social History Does the pt smoke?: No Smoking Status: Never smoker Does the pt drink ETOH?: No Does the pt have substance abuse?: No - Immunizations Immunizations are current?: Yes - POLST Patient has POLST: No POLST Status: Full Code PD ED PE NORMAL - Vitals Vital signs reviewed: Yes - General General: Alert and oriented X 3, No acute distress, Well developed/nourished - Neck Neck: Supple, no meningeal sign - Cardiac Cardiac: RRR, No murmur - Respiratory Respiratory: No respiratory distress, Clear bilaterally - Abdomen Abdomen: Normal bowel sounds, Soft, Non distended, Other (TTP across lower abdomen without guarding or rebound) - Back Back: No CVA TTP - Derm Derm: Normal color, Warm and dry Results - Vitals Vitals: Oxygen O2 Source Room air - Labs Labs: Laboratory Tests 12/31/21 12/31/21 12/31/21 19:37 19:37 20:30 WBC 7.2 RBC 4.72 Hgb 14.9 Hct 43.3 MCV 91.7 MCH 31.6 H MCHC 34.4 RDW 12.6 Plt Count 193 MPV 8.9 Neut # (Auto) 4.8 Lymph # (Auto) 1.9 Kendall # (Auto) 0.4 Eos # (Auto) 0.2 Baso # (Auto) 0.0 Absolute Nucleated RBC 0.00 Nucleated RBC % 0.0 Sodium 138 Potassium 3.9 Chloride 102 Carbon Dioxide 25 Anion Gap 11.0 BUN 32 H Creatinine 1.0 Estimated GFR (MDRD) 59 L Glucose 107 H Calcium 10.0 Total Bilirubin 1.0 AST 20 ALT 20 Alkaline Phosphatase 56 Total Protein 8.2 Albumin 5.0 Globulin 3.2 Albumin/Globulin Ratio 1.6 Lipase 43 Urine Color YELLOW Urine Clarity CLEAR Urine pH 5.5 Ur Specific [place] >=1.030 H Urine Protein NEGATIVE Urine Glucose (UA) NEGATIVE Urine Ketones NEGATIVE Urine Occult Blood NEGATIVE Urine Nitrite NEGATIVE Urine Bilirubin NEGATIVE Urine Urobilinogen 0.2 (NORMAL) Ur Leukocyte Esterase NEGATIVE Ur Microscopic Review NOT INDICATED Urine Culture Comments NOT INDICATED Urine HCG, Qual NEGATIVE - Rads (name of study) abdominal series (xrays) Radiology: Prelim report reviewed, See rad report CT A/P Radiology: Prelim report reviewed, See rad report PD MEDICAL DECISION MAKING - ED course Complexity details: reviewed old records, reviewed results, re-evaluated patient, considered differential, d/w patient Departure - Departure Disposition: 01 Home, Self Care Clinical Impression: Constipation Qualifiers: Constipation type: unspecified constipation type Qualified Code(s): K59.00 - Constipation, unspecified Condition: Good Instructions: ED Constipation Follow-Up: Kasey Acharya ARNP [Primary Care Provider] - Comments: The results of tonight's blood tests and urine test have no concerning nor diagnostic findings. The CT scan reflects significant constipation but no evidence of bowel obstruction, mass, infection, or inflammation. Follow up with your primary care provider for reevaluation, next available appointment. I would recommend continuing to take a stool softener, as well as using miralax or milk of magnesia as needed for constipation per label instructions. You can also try magnesium citrate (also available [id number]) Discharge Date/Time: 01/01/22 01:47
[2021-12-31 20:47] LABS: BILIRUBIN,URINE NEGATIVE (NEGATIVE); GLUCOSE, URINE (UA) NEGATIVE (NEGATIVE); KETONES,URINE (UA) NEGATIVE (NEGATIVE); LEUKOCYTE ESTERASE, URINE NEGATIVE (NEGATIVE); NITRITE,URINE NEGATIVE (NEGATIVE); OCCULT BLOOD,URINE NEGATIVE (NEGATIVE); PH,URINE 5.5 PH (5.0-7.5); PROTEIN,URINE NEGATIVE (NEGATIVE); UROBILINOGEN,URINE 0.2 (NORMAL) E.U./dL (NORMAL)
[2021-12-31 20:49] LABS: CLARITY,URINE CLEAR (CLEAR); HCG UR QUAL NEGATIVE
[2021-12-31] MEDS ORDERED: ONDANSETRON 4 MG/2 ML VIAL IVP STA (23:11)
[2021-12-31] MEDS ORDERED: SODIUM CHLORIDE 0.9% 1,000 ML IV STA (23:11)
[2021-12-31] MEDS ORDERED: MORPHINE 2 MG/ML CARPUJECT IVP STA (23:11)
[2021-12-31] MEDS ORDERED: iohexoL-300 100 ML VIAL ONE (23:42)
--- NOTE | 2022-01-01 00:51 | XRAY Report ---
PROCEDURE: Abdomen Acute INDICATIONS: abdominal pain TECHNIQUE: One view chest and two views of the abdomen were acquired. COMPARISON: CT abdomen pelvis 12/19/2021 FINDINGS: Surgical changes and devices: There are surgical clips in the left upper quadrant. Chest: Lungs are clear. Heart size is normal. No pleural effusions. No pneumoperitoneum. Abdomen: Bowel gas pattern is within normal limits. No suspicious calcifications. Bones: No suspicious bony lesions. IMPRESSION: 1. Bowel gas pattern within normal limits. Reviewed by: Jairo Cantrell MD on 01/01/2022 12:11 AM PDT Approved by: Jairo Cantrell MD on 01/01/2022 12:11 AM PDT Station ID: [id number]
--- NOTE | 2022-01-01 01:19 | CT Report ---
PROCEDURE: ABDOMEN/PELVIS W INDICATIONS: abdominal pain CONTRAST: Omni 300 100ml TECHNIQUE: After the administration of intravenous contrast, 5 mm thick sections acquired from the diaphragms to the symphysis. 5 mm thick coronal and sagittal reformats were acquired. For radiation dose reducti on, the following was used: automated exposure control, adjustment of mA and/or kV according to reji ent size. COMPARISON: None. FINDINGS: Image quality: Excellent. Lung bases: Unremarkable. Heart: Heart is normal in size. ABDOMEN: Liver: No mass lesion. Gallbladder: Within normal limits without calcified gallstones. Biliary ducts: No biliary ductal dilatation. Pancreas: Unremarkable. Spleen: Normal in size. Adrenal Glands: No adrenal nodules. Kidneys and Ureters: No hydronephrosis. Stomach and Bowel:There are postsurgical changes along the stomach. There is a segment of mild small bowel distention and fecalization involving the ileum in the right lower quadrant. No evidence of a closed loop obstruction. The findings are nonspecific but suggestive of stasis or ileus. There is mod erate stool distention throughout the colon extending to the rectum. No discrete obstructing mass les ion identified. No pericecal inflammatory changes to suggest appendicitis. Peritoneum: No abnormal intraperitoneal fluid. No free air. Ventral Wall: No hernia. Abdominal Nodes: No retroperitoneal or mesenteric adenopathy by size criteria. Vessels: Aorta and inferior vena cava are normal in size. PELVIS: Pelvic Organs: There is a small loculated fluid collection measuring proxy 1.7 x 1.0 cm in the regio n of the left labia. The uterus is surgically absent. Bladder: Unremarkable. Pelvic Nodes: No enlarged lymph nodes. Miscellaneous: No inguinal hernias are seen. Bones: Visualized osseous structures demonstrate no suspicious focal lesions. IMPRESSION: 1. Moderate stool distention throughout the colon extending to the rectum. No discrete destructive ma ss visualized. The findings are suggestive of stool impaction or constipation. 2. Mild distention of a segment of small bowel in the right lower quadrant with associated mild fecal ization. The findings are suggestive of stasis or an ileus. No definite bowel obstruction or closed l oop obstruction. Reviewed by: Jairo Cantrell MD on 01/01/2022 1:18 AM PDT Approved by: Jairo Canterll MD on 01/01/2022 1:18 AM PDT Station ID: [id number]
[2022-01-01] MEDS ORDERED: iohexoL-300 100 ML VIAL IVP ONE (01:21)
[2022-01-01] MEDS ORDERED: MAGNESIUM HYDROXIDE 2,400 MG/30 ML UDC PO STA (01:38)
[2022-01-01 01:48] VITALS: BP 106/68
== END 2022-01-01 01:47 | disposition home or self-care (01) ==
LOC: ED 19:14
DX: K59.00 Constipation, unspecified (principal)
CPT/HCPCS: 36415; 74022; 74177; 80053; 81003; 81025; 83690; 85025; 96374; 96375; 99282; 99284; A9270; Q9967; 81001; 87086

== ENCOUNTER 2022-03-19 07:42 | Outpatient (CLI) | payer OTHER ==
--- NOTE | 2022-03-20 10:35 | Mammography Report ---
BILATERAL DIGITAL SCREENING MAMMOGRAM 3D/2D WITH EXAGGERATED CC: 03/19/2022 CLINICAL: Routine screening. Family history of breast cancer. Comparison is made to exams dated: 03/17/2021 mammogram, 02/01/2018 mammogram, and 03/22/2015 mammogram - [facility]. There are scattered areas of fibroglandular density in both breasts (category b / 25%-50% glandular t issue). There are benign post operative findings in both breasts. No significant masses, calcifications, or other findings are seen in either breast. There has been no significant interval change. IMPRESSION: BENIGN There is no mammographic evidence of malignancy. A 1 year screening mammogram is recommended. Based on the Tyrer Cuzick model (a risk assessment model) the patients lifetime risk is 8.2% and her 10 year risk is 1.6%. According to the ACR, ACS, and NCCN guidelines, an annual breast MRI exam rosalva g with mammogram is recommended if the patients lifetime risk is 20% or greater. This exam was interpreted at Station ID: [id number]. NOTE: For mammograms, a report in lay terms will be sent to the patient. Approximately 15% of breast malignancies will not be visualized mammographically. In the management of a palpable breast mass, a negative mammogram must not discourage biopsy of a clinically suspicious lesion. Electronically Signed By: Jeff gutierrez/[place]bella:03/19/2022 10:32:13 ACR BI-RADS Category 2: Benign Finding(s) 3342F PARENCHYMAL PATTERN: (A) - The breast(s) demonstrate(s) scattered fibroglandular densities. BI-RADS CATEGORY: (2) - 2 RECOMMENDATION: (ANNUAL) - Recommend routine annual screening mammography. [id number] 1 year screening LATERALITY: (B)
== END 2022-03-19 07:43 | disposition home or self-care (01) ==
LOC: DI.S 07:42
PROVIDERS: ATTEND Registered Nurse
DX: Z12.31 Encounter for screening mammogram for malignant neoplasm of breast (principal); Z80.3 Family history of malignant neoplasm of breast

== ENCOUNTER 2022-07-25 07:06 | Outpatient (CLI) | payer OTHER ==
[2022-07-25 14:17] LABS: BASOPHILS % (AUTO) 0.6 %; EOSINOPHILS # (AUTO) 0.2 10^3/uL (0.0-0.7); EOSINOPHILS % (AUTO) 4.2 %; HCT - HEMATOCRIT 42.5 % (37.0-47.0); HGB - HEMOGLOBIN 14.4 g/dL (12.0-16.0); LYMPHOCYTES # (AUTO) 2.1 10^3/uL (1.5-3.5); LYMPHOCYTES % (AUTO) 40.8 %; MEAN CORPUSCULAR HEMOGLOBIN 31.3 pg (27.0-31.0); MEAN CORPUSCULAR HGB CONC 33.9 g/dL (32.0-36.0); MEAN CORPUSCULAR VOLUME 92.4 fL (81.0-99.0); MEAN PLATELET VOLUME 9.6 fL (7.9-10.8); MONOCYTES # (AUTO) 0.2 10^3/uL (0.0-1.0); NEUTROPHILS # (AUTO) 2.6 10^3/uL (1.5-6.6); NEUTROPHILS % (AUTO) 50.2 %; PLT - PLATELET COUNT 181 10^3/uL (130-450); RED CELL DISTRIBUTION WIDTH 13.4 % (12.0-15.0); WHITE BLOOD COUNT 5.2 x10^3/uL (4.8-10.8)
[2022-07-25 14:55] LABS: THYROID STIMULATING HORMONE 2.44 uIU/mL (0.34-5.60)
[2022-07-25 15:33] LABS: ALBUMIN 4.2 g/dL (3.2-5.5); ALBUMIN/GLOBULIN RATIO 1.7 (1.0-2.2); ALKALINE PHOSPHATASE 55 IU/L (42-121); ALT ALANINE AMINOTRANSFERASE 22 IU/L (10-60); AST ASPARTATE AMINOTRANSFERASE 22 IU/L (10-42); BILIRUBIN,TOTAL 0.8 mg/dL (0.2-1.0); BUN - BLOOD UREA NITROGEN 17 mg/dL (6-20); CALCIUM 9.1 mg/dL (8.5-10.3); CARBON DIOXIDE - CO2 27 mmol/L (21-32); CHLORIDE 110 mmol/L (101-111); CHOL/HDL RATIO 3.1 (<4.4); CHOLESTEROL 172 mg/dL; CREATININE 0.8 mg/dL (0.4-1.0); GFR - MDRD 77 (>89); GLUCOSE 82 mg/dL (70-100); HDL CHOLESTEROL 56 mg/dL; LDL CHOLESTEROL,CALCULATED 53 mg/dL; LDL/HDL RATIO 0.9 (<4.4); SODIUM 141 mmol/L (135-145); TOTAL PROTEIN 6.7 g/dL (6.7-8.2); TRIGLYCERIDES 314 mg/dL; VLDL CHOLESTEROL 63 mg/dL
== END 2022-07-25 07:07 | disposition home or self-care (01) ==
LOC: LAB.S 07:06
PROVIDERS: ATTEND Registered Nurse
DX: I10 Essential (primary) hypertension (principal); E78.2 Mixed hyperlipidemia; Z79.899 Other long term (current) drug therapy
CPT/HCPCS: 36415; 80053; 80061; 83721; 84443; 85025

== ENCOUNTER 2022-11-13 09:46 | Outpatient (CLI) | payer OTHER ==
[2022-11-13 10:30] LABS: ALBUMIN 4.3 g/dL (3.2-5.5); BILIRUBIN,TOTAL 0.8 mg/dL (0.2-1.0); CALCIUM 9.5 mg/dL (8.5-10.3); CREATININE 0.7 mg/dL (0.6-1.3); POTASSIUM 3.3 mmol/L (3.5-4.5); TOTAL PROTEIN 6.5 g/dL (6.4-8.9)
[2022-11-18 12:09] LABS: VITAMIN A SERUM 41.8 ug/dL (20.1-62.0); VITAMIN E (ALPHA TOCOPHEROL) 8.4 mg/L (7.0-25.1); VITAMIN E (GAMMA TOCOPHEROL) 0.5 mg/L (0.5-5.5)
== END 2022-11-13 09:47 | disposition home or self-care (01) ==
LOC: LAB 09:46
PROVIDERS: ATTEND Nurse Practitioner
DX: R10.11 Right upper quadrant pain (principal); Z98.84 Bariatric surgery status
CPT/HCPCS: 36415; 80053; 82239; 82652; 82728; 82746; 84425; 84446; 84590; 84630

== ENCOUNTER 2022-11-21 12:12 | Outpatient (CLI) | payer OTHER ==
--- NOTE | 2022-11-21 16:51 | Ultrasound Report ---
PROCEDURE: Abdomen Limited INDICATIONS: RUQ ABDOMINAL PAIN TECHNIQUE: Real-time focused scanning was performed of the abdomen, with image documentation. COMPARISONS: Ultrasound abdomen limited, 12/19/2021. FINDINGS: Liver: Liver is normal in size and demonstrates increased echotexture. Gallbladder: There is gallbladder sludge. No gallbladder wall thickening, pericholecystic progression or sonographic Franco sign. Biliary ducts: Intrahepatic bile ducts are non-dilated. Extrahepatic bile duct caliber measures 6.8 mm. Normal is 6-7 mm or less in diameter, or 10 mm or less post-cholecystectomy. Pancreas: Visualized portions of the pancreas are sonographically normal. Right kidney: Normal in size and echotexture. Right kidney measures 10.0 cm long. No hydronephrosis or nephrolithiasis. No solid masses. No complex renal cystic lesions which require follow-up. Aorta: Visualized aorta is normal in caliber at less than 3 cm. IVC: Intrahepatic inferior vena cava is patent. Miscellaneous: No free abdominal fluid. IMPRESSION: 1. Echogenic liver likely secondary to hepatic fatty infiltration. Other hepatocellular disease could have a similar ultrasound appearance. Please correlate with liver functions. 2. There is gallbladder sludge. No ultrasound findings to suggest acute cholecystitis. Reviewed by: Fanny Montenegro MD on 11/21/2022 4:50 PM PDT Approved by: Fanny Montenegro MD on 11/21/2022 4:50 PM PDT Station ID: [id number]
== END 2022-11-21 12:13 | disposition home or self-care (01) ==
LOC: DI 12:12
PROVIDERS: ATTEND Nurse Practitioner
DX: R10.11 Right upper quadrant pain (principal)

== ENCOUNTER 2023-07-14 07:21 | Day surgery (SDC) | payer OTHER ==
[2023-07-14] MEDS: LACTATED RINGERS 1,000 ML IV ONE (07:31)
[2023-07-14] MEDS ORDERED: ceFAZolin 2 GM VIAL ONE (07:35)
[2023-07-14] MEDS ORDERED: BUPIVACAINE 0.5% PF 10 ML VIAL ONE (07:45)
--- NOTE | 2023-07-14 08:45 | ANESTHESIA ---
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) Last Food Intake: >8HR - Is Patient ?: No Comments:: SALPINGECTOMY 2017 Home Medications and Allergies Home Medications: Ambulatory Orders Amitriptyline [Elavil] 25 mg PO HS 07/07/23 Dextroamphetamine/Amphetamine [Adderall 10 mg Tablet] 10 mg PO DAILY 07/07/23 Diclofenac Potassium 50 mg PO TID 07/07/23 Escitalopram Oxalate 20 mg PO DAILY 07/07/23 Lisdexamfetamine Dimesylate [Vyvanse] 70 mg PO DAILY 07/07/23 Omeprazole 20 mg PO DAILY 07/07/23 Rosuvastatin Calcium 20 mg PO HS 07/07/23 SUMAtriptan [Imitrex] 50 mg PO ONCE PRN 07/07/23 Semaglutide [Ozempic] 0.25 mg SQ ONCE 07/07/23 Topiramate 50 mg PO DAILY 07/07/23 estradioL [Estradiol (Once Weekly)] 0.0375 mg TOP ONCE 07/07/23 hydrOXYzine HCL [Hydroxyzine HCl] 25 mg PO DAILY 07/07/23 lamoTRIgine [Lamictal Xr] 25 mg PO DAILY 12/31/21 Amitriptyline [Elavil] 25 mg PO HS 07/07/23 Dextroamphetamine/Amphetamine [Adderall 10 mg Tablet] 10 mg PO DAILY 07/07/23 Diclofenac Potassium 50 mg PO TID 07/07/23 Escitalopram Oxalate 20 mg PO DAILY 07/07/23 Lisdexamfetamine Dimesylate [Vyvanse] 70 mg PO DAILY 07/07/23 Omeprazole 20 mg PO DAILY 07/07/23 Rosuvastatin Calcium 20 mg PO HS 07/07/23 SUMAtriptan [Imitrex] 50 mg PO ONCE PRN 07/07/23 Semaglutide [Ozempic] 0.25 mg SQ ONCE 07/07/23 Topiramate 50 mg PO DAILY 07/07/23 estradioL [Estradiol (Once Weekly)] 0.0375 mg TOP ONCE 07/07/23 hydrOXYzine HCL [Hydroxyzine HCl] 25 mg PO DAILY 07/07/23 Allergies/Adverse Reactions: Allergies Allergy/AdvReac Type Severity Reaction Status Date / Time adhesive tape Allergy Intermediate Rash Verified 07/14/23 07:43 shellfish derived Allergy Itching Verified 07/14/23 07:43 Sulfa (Sulfonamide Allergy Rash Verified 07/14/23 07:43 Antibiotics) Anes History & Medical History - Anesthetic History Anesthesia Complications: reports: No previous complications Family history of Anesthesia Complications: Denies - Medical History Cardiovascular: reports: Hypertension (DENIES, DOESN'T APPEAR TO TAKE MEDS), H igh cholesterol Pulmonary: reports: None Gastrointestinal: reports: GERD, Chronic constipation, Other Urinary: reports: Chronic bladder infection Neuro: reports: None Musculoskeletal: reports: Chronic back pain Endocrine/Autoimmune: reports: None Blood Disorders: reports: None Skin: reports: None Smoking Status: Former smoker Psychosocial: reports: No issues indicated - Surgical History General: reports: Appendectomy Urologic: reports: Bladder surgery Gynecologic: reports: Endometrial ablation, Oophrectomy, Other Orthopedic: reports: Carpal Tunnel surgery Results - EKG Results EKG Comparison: Reviewed EKG Exam General: Alert, Oriented x3 Dental: WNL Mouth Openin Fingerbreadth Neck Mobility: Normal Mallampati classification: II Thyromental Distance: 4-6 cm Plan Anesthesia Type: General Consent for Procedure(s) Verified and Reviewed: Yes Code Status: Attempt Resuscitation ASA classification: 2-Mild systemic disease Is this case an emergency?: No
[2023-07-14] MEDS ORDERED: ePHEDrine 50 MG/ML VIAL IVP PRN (08:50)
[2023-07-14] MEDS ORDERED: MORPHINE 2 MG/ML CARPUJECT IVP PRN (08:50)
[2023-07-14] MEDS ORDERED: ATROPINE ABBOJECT 1 MG/10 ML SYRINGE IVP PRN (08:50)
[2023-07-14] MEDS ORDERED: fentaNYL 100 MCG/2 ML VIAL IVP PRN (08:50)
[2023-07-14] MEDS ORDERED: NALOXONE 0.4 MG/ML VIAL IVP PRN (08:50)
[2023-07-14 09:00] LABS: ALBUMIN 4.4 g/dL (3.2-5.5); ALBUMIN/GLOBULIN RATIO 1.9 (1.0-2.2); BILIRUBIN,TOTAL 1.1 mg/dL (0.2-1.0); CALCIUM 9.7 mg/dL (8.5-10.3); CREATININE 0.8 mg/dL (0.6-1.3); POTASSIUM 3.5 mmol/L (3.5-4.5); TOTAL PROTEIN 6.7 g/dL (6.4-8.9)
[2023-07-14] MEDS ORDERED: LACTATED RINGERS 1,000 ML IV SCH (09:00)
[2023-07-14] MEDS ORDERED: BUPIVACAINE 0.5%-EPI 1:200000 PF 30 ML VIAL ONE (10:54)
[2023-07-14] MEDS ORDERED: fentaNYL 100 MCG/2 ML VIAL ONE ×2 (11:07→12:52)
[2023-07-14] MEDS ORDERED: MIDAZOLAM 2 MG/2 ML VIAL ONE (11:07)
[2023-07-14] MEDS ORDERED: GLYCOPYRROLATE 1 MG/5 ML VIAL ONE (11:08)
[2023-07-14] MEDS ORDERED: PROPOFOL 200 MG/20 ML VIAL IVP ONE (11:08)
[2023-07-14] MEDS ORDERED: ePHEDrine 50 MG/ML VIAL IVP ONE (11:08)
[2023-07-14] MEDS ORDERED: ROCURONIUM 50 MG/5 ML VIAL ONE ×2 (11:08→12:32)
[2023-07-14] MEDS: BUPIVACAINE 0.5%-EPI 1:200000 PF 30 ML VIAL SUBQ ONE (12:14)
[2023-07-14] MEDS ORDERED: DEXAMETHASONE 4 MG/ML VIAL ONE (12:52)
[2023-07-14] MEDS ORDERED: ONDANSETRON 4 MG/2 ML VIAL ONE ×2 (12:52→13:49)
[2023-07-14] MEDS ORDERED: SUGAMMADEX 200 MG/2 ML VIAL IVP ONE (13:04)
[2023-07-14] MEDS ORDERED: KETOROLAC 30 MG/ML VIAL ONE (13:07)
--- NOTE | 2023-07-14 13:36 | OPERATIVE REPORT ---
Operative Report - General Procedure Date: 07/14/23 Planned Procedure: Laparoscopic cholecystectomy, possible open cholecystectomy, possible intraoperative cholangiogram, possible common bile duct exploration Pre-Op Diagnosis: Symptomatic cholelithiasis Procedure Performed: Laparoscopic cholecystectomy Post Op Diagnosis: Same - Procedure Note Primary Surgeon: Obed Gutierres MD Anesthesia Provider: Sonu Ritter CRNA Anesthesia Technique: General ET tube, Local (30 mL of half percent Marcaine with epinephrine) IV Fluids (mL): 1,200 Estimated Blood Loss (mL): 20 Drain/Tube Type: Other (None.) Indications: Symptomatic gallstones (recurrent right upper quadrant postprandial pain) Findings: Large distended but not thick-walled gallbladder with multiple adhesions to it Complications: None. - Other Other Information/Narrative: After verbal and written informed consent was obtained detailing the operation, the alternatives to the operation including no operation, risks of infection, bleeding requiring transfusion with its risks, nerve injury, and and after I met with the patient confirming the surgery, the patient was brought to the operative suite and placed supine on the operating table. Great care was taken to avoid pressure points to prevent pressure necrosis or nerve injury. Monitoring devices were applied along with TEDs and pneumatic compressive stockings (to prevent DVT). The patient received preoperative antibiotics for surgical prophylaxis. Sonu Ritter CRNA sedated and anesthetized the reji ent for the entire procedure. The patient was prepped and draped in usual sterile manner. A "time in" then confirmed that the patient was identified with 3 identifiers (name, date, and medical record number), the history and physical was in the chart, the signed consent confirming the procedure was in the chart, the patient was in the correct position, the aforementioned prophylactic measures were in place were given, we had the correct personnel and equipment to complete the procedure and that anesthesia, and the surgical team was given an opportunity to express any concerns. With the agreement of everyone in the room, we proceeded with the operation. The initial incision was at the epigastric position due to her previous surgery and dissection to the linea alba was completed using blunt dissection. The linea alba was grasped with a Jaison and incised. In a similar manner the peritoneum was grasped and incised using Metzenbaum scissors. In this location, a 12 mm blunt tipped, balloon tipped port was placed and the balloon was inflated to keep the port in position. The abdominal cavity was insufflated with carbon dioxide to a steady-state pressure of 12 mmHg. Despite this I could not get adequate visualization and I was quite concerned about dense adhesions due to her previous surgery. As such I abandoned the site as the initial site of entry and switched back to the supraumbilical incision that she had placed due to her previous gastric bypass surgery. I traced this incision and the incision was made a little bit wider than the initial incision. Dissection was carried out down to the linea alba which was grasped between 2 Jaison's and incised. Similarly the peritoneum was grasped and incised gaining entry into the abdomen clearly and without incident. 3 additional 5 mm ports were placed in standard locations for laparoscopic cholecystectomy (subxiphoid and 2 right subcostal) under direct vision of the 30 degree laparoscope and without incident. The patient was then placed in reverse Trendelenburg position and was rotated slightly to their left. Visualization of the abdomen clearly showed that my initial incision had me in the falciform ligament. Initially the gallbladder could not be grasped due to its distended nature. As such a laparoscopic needle was placed into the gallbladder and 60 cc of dark green-brown bile were removed. With the gallbladder partially deflated, the gallbladder fundus was grasped with an atraumatic grasper. Multiple adhesions had to be taken down by blunt and sharp dissection along with electrocautery. The liver was also quite floppy and inner away and every single time the liver had to be moved out of the way in order to provide for adequate visualization.Eventually, I identified the infundibulum and this was then grasped and retracted superiorly and laterally. Dissection was then begun at the angle of Calot. The cystic duct and (slightly medially and posteriorly), cystic artery were clearly identified. During the dissection there was some arterial bleeding from the cystic artery and this was clipped first twice proximally once distally and transected. The bleeding stopped with placement of the clips. The critical view was obtained and a photograph taken. 2 clips proximally and one clip distally were then placed on the cystic duct. The clips were carefully placed to avoid occluding the juncture with the common bile duct. The cystic duct was then transected with laparoscopic susan. The gallbladder was then removed from its fossa in a retrograde manner using electrocautery. This is quite difficult due to the intrahepatic nature of the gallbladder as well as its adhesions to the surrounding structures. With the 30 degree 5 mm scope in the subxiphoid position, the gallbladder was placed in an Endo Catch bag to be extracted through the 12 mm port site. I irrigated the right upper quadrant with liter of warm sterile saline and the area was aspirated dry. I inspected the gallbladder fossa and there was no bleeding or bile leak. Clips on the cystic duct and cystic artery appeared to be secure. I briefly visually explored the abdomen. There was no other evidence of overt pathology. I injected the port sites at the peritoneal, fascial, and skin levels under direct vision with 0.5% Marcaine. All ports and the Endo Catch containing the gallbladder were removed. Following gallbladder removal, the remaining carbon dioxide was expelled from the abdomen. Please note photographs were taken of the gallbladder, the critical view, the clips, and the gallbladder bed with the gallbladder extracted. Copies will be provided to the patient. The fascia the umbilicus and at the subxiphoid position was approximated using 2 [id number] 0 Vicryl sutures. The skin at each port site was approximated using a subcuticular 4-0 Monocryl. Dermabond was then applied over the wounds.. At this point a "timeout" was performed that confirmed that all counts were correct, the procedure that was performed, the blood loss, the IV fluids administered, the patient's condition and any concerns of the operating team had. Dressings were then applied. Having tolerated the procedure well, the patient was extubated and taken to recovery room in good and stable condition. The plan is for outpatient discharge when the patient is adequately recovered. CPT 08654 This document was created in part using voice recognition technology. Because of the inherent limitations of the system, occasional same sounding word substitutions and grammatical errors do occur and persist despite proofreading. Please read this document for context.
[2023-07-14] MEDS: LACTATED RINGERS 800 ML IV ONE (13:38)
[2023-07-14] MEDS: ONDANSETRON 4 MG/2 ML VIAL IVP PRN (13:45)
[2023-07-14] MEDS: HYDROmorphone 0.5 MG/0.5 ML SYRINGE IVP PRN (13:50)
[2023-07-14] MEDS ORDERED: HYDROmorphone 1 MG/ML CARPUJECT ONE ×2 (13:54→14:08)
[2023-07-14] MEDS: diphenhydrAMINE INJ 50 MG/ML VIAL ONE (14:23)
[2023-07-14] MEDS: ACETAMINOPHEN 1,000 MG/100 ML 1,000 MG/100 ML BAG IV ONE (14:27)
[2023-07-14] MEDS ORDERED: HYDROcod/ACETAM 5/325 MG TABLET ONE (15:57)
[2023-07-14] MEDS: HYDROcod/ACETAM 5/325 MG TABLET PO ONE (16:02)
[2023-07-14 16:07] VITALS: BP 99/63; O2SAT 94
--- NOTE | 2023-07-14 18:08 | ANESTHESIA POST OP EVALUATION ---
Anesthesia Post Eval - Post Anesthesia Eval Vitals: Last Vital Signs Temp 36.4 C L 07/14/23 14:47 Pulse 82 07/14/23 16:05 Resp 16 07/14/23 16:05 BP 99/63 07/14/23 16:05 Pulse Ox 94 07/14/23 16:05 O2 Flow Rate CV Function Including HR & BP: Stable Pain Control: Satisfactory Nausea & Vomiting: Negative Mental Status: Baseline Respiratory Status: Airway Patent Hydration Status: Satisfactory Anesthesia Complications: None
== END 2023-07-14 07:22 | disposition home or self-care (01) ==
LOC: SDS 07:21
PROVIDERS: ATTEND Surgery
PROC: 0FT44ZZ Resection of Gallbladder, Percutaneous Endoscopic Approach (ICD-10-PCS; principal; 2023-07-14 08:30)
DX: K81.1 Chronic cholecystitis (principal); Z87.891 Personal history of nicotine dependence
CPT/HCPCS: 36415; 47562; 80053; A9270; J0131; J1170; J1200; J7120

== ENCOUNTER 2023-08-01 16:31 | Outpatient (CLI) | payer OTHER | END 2023-08-01 23:59 | disposition critical access hospital (66) | LOC: EMS 16:31 | DX: R10.84 Generalized abdominal pain (principal); R19.00 Intra-abdominal and pelvic swelling, mass and lump, unspecified site; R53.83 Other fatigue; R11.0 Nausea; Z98.890 Other specified postprocedural states | CPT/HCPCS: A0425; A0427 ==